=== PATIENT | female | born 1945 | race Caucasian/White ===

== ENCOUNTER 2019-08-19 14:50 | Outpatient (CLI) | payer MEDICARE, SELFPAY ==
--- NOTE | ~2019-08-19 | MM_ITS ---
EXAMINATION: MM screening [facility] BI w shivani HISTORY: Screening mammogram, family history of breast cancer in her sister. TECHNIQUE: Craniocaudal and mediolateral oblique 3-D tomosynthesis images were obtained and synthetic 2-D images were generated. CAD analysis was submitted and interpreted. COMPARISON: No prior mammogram is available for comparison at this institution. BREAST PARENCHYMAL COMPOSITION: The breasts are almost entirely fatty. FINDINGS: Scattered benign-appearing calcifications are present. There is no evidence of suspicious m ass, calcification, or architectural distortion to suggest malignancy in either breast. IMPRESSION: 1. No mammographic evidence of malignancy. 2. Recommend routine screening mammography in one year. BI-RADS Category 2: Benign finding(s). Reviewed, dictated and finalized at location A.
== END 2019-08-19 14:51 | disposition home or self-care (01) ==
PROVIDERS: PCP Family Medicine; Visit Provider Physician Assistant
DX: Z12.31 Encounter for screening mammogram for malignant neoplasm of breast (principal)
CPT/HCPCS: 77063; 77067

== ENCOUNTER 2020-10-12 08:08 | Outpatient (CLI) | payer MEDICARE, SELFPAY ==
--- NOTE | ~2020-10-12 | XR_ITS ---
EXAMINATION: XR hip LT min 2V EXAM DATE: 10/12/2020 09:03 INDICATION: M25.552 - Pain in left hip. Fell one year ago. No reported recent injury. TECHNIQUE: Left hip frontal, 'frog leg' projections for interpretation. There is no prior study for c omparison. FINDINGS: Smooth left hip femoral head contour, no radiographic evidence of avascular necrosis. There is mild to moderate primary osteoarthritis. There are no acute fractures or dislocations identified . There is no subcutaneous gas. Small calcified fibroids. L5 pedicular rods. IMPRESSION: Mild to moderate left hip osteoarthritis. Reviewed, dictated and finalized at location B.
--- NOTE | ~2020-10-12 | MM_ITS ---
EXAMINATION: MM screening [facility] BI w shivani HISTORY: Screening TECHNIQUE: Craniocaudal and mediolateral oblique 3-D tomosynthesis images were obtained and synthetic 2-D images were generated. CAD analysis was submitted and interpreted. COMPARISON: 08/19/2019 BREAST PARENCHYMAL COMPOSITION: There are scattered areas of fibroglandular density. FINDINGS: There is a focal asymmetry in the upper outer quadrant of the right breast near the nipple. The left breast is stable without evidence for malignancy. IMPRESSION: 1. Focal right breast asymmetry anteriorly in the upper outer quadrant. 2. Additional mammographic views and possible breast ultrasound are recommended. BI-RADS Category 0: Incomplete: Needs additional imaging evaluation. Reviewed, dictated and finalized at location A. IMPRESSION: 1. Focal right breast asymmetry anteriorly in the upper outer quadrant. 2. Additional mammographic views and possible breast ultrasound are recommended . BI-RADS Category 0: Incomplete: Needs additional imaging evaluation.
== END 2020-10-12 08:09 | disposition home or self-care (01) ==
PROVIDERS: PCP Family Medicine; Visit Provider Family Medicine
DX: Z12.31 Encounter for screening mammogram for malignant neoplasm of breast (principal); M25.552 Pain in left hip; R92.8 Other abnormal and inconclusive findings on diagnostic imaging of breast; M16.12 Unilateral primary osteoarthritis, left hip
CPT/HCPCS: 73502; 77063; 77067

== ENCOUNTER 2020-10-28 14:10 | Outpatient (CLI) | payer MEDICARE, SELFPAY ==
--- NOTE | ~2020-10-28 | MMUS_ITS ---
EXAMINATION: MM diagnostic mammo unilat RT, US breast RT limited HISTORY: Follow-up subtle right breast asymmetry TECHNIQUE: Additional 3-D tomosynthesis images of the right breast were performed and synthetic 2-D i mages were generated. CAD analysis was submitted and interpreted. High resolution Limited right breas t ultrasound was performed. COMPARISON: 10/12/2020 BREAST PARENCHYMAL COMPOSITION: Breast composed of scattered areas of fibroglandular density. FINDINGS: MAMMOGRAPHIC FINDINGS: There are no suspicious masses, calcifications or architectural distortion to suggest malignancy. ULTRASOUND: Limited right breast ultrasound: In the subareolar location there is an oval circumscribed hypoechoic mass without internal vascularity or posterior features measuring 2.2 x 3 x 1.4 cm, most likely bridgett gn lipoma given the lack of mammographic abnormality. IMPRESSION: 1. Probable benign right breast findings. 2. Recommend 6 month follow-up right breast ultrasound BI-RADS category 3, probably benign findings. Reviewed, dictated and finalized at location A. IMPRESSION: 1. Probable benign right breast findings. 2. Recommend 6 month follow-up right breast ultrasound BI-RADS category 3, probably benign findings.
== END 2020-10-28 14:11 | disposition home or self-care (01) ==
PROVIDERS: PCP Family Medicine; Visit Provider Family Medicine
DX: R92.8 Other abnormal and inconclusive findings on diagnostic imaging of breast (principal)
CPT/HCPCS: 76642; 77065

== ENCOUNTER 2021-04-28 11:38 | Outpatient (CLI) | payer MEDICARE, SELFPAY ==
--- NOTE | ~2021-04-28 | MM_ITS ---
EXAMINATION: MM diagnostic [facility] RT w shivani HISTORY: Six-month follow-up for probably benign right breast asymmetry TECHNIQUE: Craniocaudal, mediolateral, and mediolateral oblique 3-D tomosynthesis images of the right breast were performed and synthetic 2-D images were generated. CAD analysis was submitted and interp reted. COMPARISON: 10/28/2020, 10/12/2020, 08/19/2019 BREAST PARENCHYMAL COMPOSITION: There are scattered areas of fibroglandular density. FINDINGS: An asymmetry in the anterior third of the breast on the craniocaudal view has a stable appe arance when compared to prior mammograms. There has been no suspicious interval change. Scattered darlin ign-appearing calcifications are present. No suspicious mass, calcification, or architectural distort ion are identified. The previous ultrasound demonstrated a sonographic mass deep in the breast with f eatures suggestive of a lipoma, not corresponding to the asymmetry in question. IMPRESSION: 1. No mammographic evidence of malignancy. 2. Routine screening mammography is recommended. BI-RADS Category 2: Benign finding(s). Reviewed, dictated and finalized at location A. 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
== END 2021-04-28 11:39 | disposition home or self-care (01) ==
LOC: ANHIMG 11:39
PROVIDERS: PCP Family Medicine; Visit Provider Physician Assistant
DX: R92.8 Other abnormal and inconclusive findings on diagnostic imaging of breast (principal)
CPT/HCPCS: 77061; 77065; G0279

== ENCOUNTER 2021-08-23 09:09 | Outpatient (CLI) | payer MEDICARE, SELFPAY ==
--- NOTE | ~2021-08-23 | DEXA_ITS ---
Bone Density Report Name: ANSON SOLOMON Age: 75 Sex: Female Ethnicity: White Date of : 1945 Indication: postmenopausal; Referring Provider: Kyrie Mina Study: Bone densitometry was performed. Exam Date: August 23, 2021 Accession number: [id number] Bone Density: Region BMD T-score Z-score Classification AP Spine (L1, L2) 1.332 3.2 5.6 Normal Femoral Neck (Left) 0.843 -0.1 2.1 Normal Total Hip (Left) 1.036 0.8 2.7 Normal Total Hip Bilateral Avg 1.042 0.8 2.7 Normal Femoral Neck (Right) 0.812 -0.3 1.8 Normal Total Hip (Right) 1.047 0.9 2.7 Normal World Health Organization criteria for BMD impression classify patients as: Normal (T-score at or above -1.0), Osteopenia (T-score between -1.0 and -2.5), or Osteoporosis (T-score at or below -2.5). 10-year Fracture Risk: FRAX not reported because: All T-scores for Spine Total, Hip Total, Femoral Neck at or above -1.0 Clinical Information Provided by Patient: Has used the following medications: Vitamin D, Calcium Patient maximum height was 60 Menopause Age: 44 No regular weight bearing exercise Drinks caffeinated beverages Onset of menses at age 10 Number of children 2 Impression: The patient has normal bone mass. Discussion: BONE DENSITY IS ABOVE THE MINIMUM DESIRABLE LEVEL AT ALL SKELETAL SITES TESTED. This patient?s bone mineral density is above the minimum desirable level (T-score -1.0 or better) at all sites measured. The patient should follow a healthful lifestyle (good nutrition with adequate calcium and vitamin D, and appropriate weight-bearing exercise). Follow-Up: Consider repeating this study in 5 years or sooner if there is some new clinical indication. Reported by: [facility] on 08/23/2021 9:37:00 AM. Reviewed, dictated and finalized at location [facility]
== END 2021-08-23 09:10 | disposition home or self-care (01) ==
LOC: ANHIMG 09:14
PROVIDERS: PCP Family Medicine; Visit Provider Physician Assistant
DX: Z78.0 Asymptomatic menopausal state (principal)
CPT/HCPCS: 77080

== ENCOUNTER 2022-07-10 14:44 | Outpatient (CLI) | payer MEDICARE, SELFPAY ==
--- NOTE | ~2022-07-10 | MM_ITS ---
EXAMINATION: MM screening [facility] BI w shivani HISTORY: Screening TECHNIQUE: Craniocaudal and mediolateral oblique 3-D tomosynthesis images were obtained and synthetic 2-D images were generated. CAD analysis was submitted and interpreted. COMPARISON: Comparison to multiple prior studies sequentially, with oldest reviewed study dated 08/18. BREAST PARENCHYMAL COMPOSITION: The breasts are almost entirely fatty. FINDINGS: There is no evidence of suspicious mass, calcification, or architectural distortion to sugg est malignancy in either breast. There has been no suspicious interval change. IMPRESSION: 1. No mammographic evidence of malignancy. 2. Recommend routine screening mammography in one year. BI-RADS Category 1: Negative Reviewed, dictated and finalized at location A. 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
== END 2022-07-10 14:45 | disposition home or self-care (01) ==
PROVIDERS: PCP Family Medicine; Visit Provider Family Medicine
DX: Z12.31 Encounter for screening mammogram for malignant neoplasm of breast (principal)
CPT/HCPCS: 77063; 77067

== ENCOUNTER 2022-08-01 07:37 | Outpatient (CLI) | payer MEDICARE, SELFPAY ==
--- NOTE | ~2022-08-01 | US_ITS ---
US thyroid INDICATION: Thyrotoxicosis TECHNIQUE: Real-time sonographic images of the thyroid gland were obtained. COMPARISON: No prior studies for comparison. FINDINGS: The right thyroid lobe measures 5.2 x 2.7 x 2.7 cm. The left thyroid lobe measures 4.1 x 1 .5 x 1.7 cm. In the right lobe there is a mixed solid and cystic mass measuring 3.3 x 2.2 x 2.4 cm wh ich is hypoechoic, wider than tall, smoothly marginated without internal punctate echogenic foci, TR 4. Also in the right lobe there is a very hypoechoic solid mass which is wider than tall, smoothly ma rginated without internal echogenic foci, TR 4, measuring 1.8 x 1.7 x 1.7 cm and the left lobe there is a solid hypoechoic mass which is wider than tall, smoothly marginated without internal echogenic f oci, TR 4, measuring 1.4 x 1.4 x 1.3 cm. Also in the left lobe there is an oval solid hypoechoic mass which is wider than tall measuring 1.3 x 0.9 x 0.9 cm with a macrocalcification internally and carlos h margins, TR 4. IMPRESSION: 1. Bilateral thyroid masses. Recommend ultrasound-guided fine-needle aspiration biopsy of dominant r ight thyroid masses. Reviewed, dictated and finalized at location B. 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 Bilateral thyroid masses. Recommend ultrasound-guided fine-needle aspiratio n biopsy of dominant right thyroid masses.
== END 2022-08-01 07:38 | disposition home or self-care (01) ==
LOC: ANHIMG 07:38
PROVIDERS: PCP Family Medicine; Visit Provider Internal Medicine
DX: E05.90 Thyrotoxicosis, unspecified without thyrotoxic crisis or storm (principal); E04.2 Nontoxic multinodular goiter
CPT/HCPCS: 76536

== ENCOUNTER 2022-08-09 07:47 | Outpatient (CLI) | payer MEDICARE, SELFPAY ==
--- NOTE | ~2022-08-09 | NM_ITS ---
EXAMINATION: NM thyroid scan w uptake DATE: 08/10/2022 10:33 INDICATION: Thyroid nodule. COMPARISON: Ultrasound 08/01/2022 TECHNIQUE: 0.469 mCi I-123 was administered orally. Scintigraphic images of the thyroid gland were o btained at 24 hours. Thyroid uptake was calculated by the technologist. FINDINGS: The thyroid uptake is 20% (normal 10-30%), with the right lobe measuring 14% uptake and the left 6%. Right thyroid lobe is larger than the left, which correlates with the ultrasound findings. The thyroi d activity is uniform. IMPRESSION: 1. Normal 24-hour iodine uptake. 2. No focal area of decreased or increased activity to suggest hypofunctioning or hyperfunctioning no dule. Reviewed, dictated and finalized at location A. 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 Normal 24-hour iodine uptake. 2. No focal area of decreased or increased activity to suggest hypofunctioning or hyperfunctioning nodule.
== END 2022-08-09 07:48 | disposition home or self-care (01) ==
PROVIDERS: PCP Family Medicine; Visit Provider Internal Medicine
DX: E04.1 Nontoxic single thyroid nodule (principal)
CPT/HCPCS: 78014; A9516

== ENCOUNTER 2022-08-24 12:25 | Outpatient (CLI) | payer MEDICARE, SELFPAY ==
--- NOTE | ~2022-08-24 | US_ITS ---
EXAMINATION: US FNA w image guidance DATE: 08/24/2022 13:43 INDICATION: Thyroid nodule. TECHNIQUE: The procedure and its benefits and risks were discussed with the patient. Risks specifically discusse d included bleeding. The patient verbalized understanding of the risks and agreed to proceed. The nec k was prepped and draped in the usual sterile manner. 1% lidocaine was used for local anesthesia. I aspirated 6 mL fluid from the 3.5 cm right thyroid nodule under ultrasound guidance and discarded the fluid. 6 passes were then made with a 25G needle into the lesion under ultrasound guidance. There w ere no immediate complications. FINDINGS: Grayscale ultrasound images demonstrate needles advanced into a 3.5 cm right thyroid nodule for biops y. The previously seen 1.8 cm nodule in inferior right thyroid lobe could not be visualized due to sh adowing. IMPRESSION: 1. Ultrasound-guided fine needle aspiration of a 3.5 cm right thyroid nodule. Reviewed, dictated and finalized at location A.
== END 2022-08-24 12:26 | disposition home or self-care (01) ==
PROVIDERS: PCP Family Medicine; Visit Provider Internal Medicine
DX: E04.1 Nontoxic single thyroid nodule (principal)
CPT/HCPCS: 10005; 88173; 88305

== ENCOUNTER 2023-02-13 09:07 | Outpatient (CLI) | payer MEDICARE, SELFPAY ==
--- NOTE | ~2023-02-13 | US_ITS ---
EXAMINATION: US thyroid DATE: 02/13/2023 09:54 INDICATION: Right-sided thyroid nodules TECHNIQUE: Multiple ultrasound images of the thyroid were obtained. COMPARISON: 08/01/2022 FINDINGS: The right thyroid lobe measures 4.6 x 2.0 x 2.1 cm. The left thyroid lobe measures 4.0 x 1.6 x 1.6 c m. 1.7 cm wider than tall solid very hypoechoic nodule with punctate internal echogenic foci (TI-RAD S 5, highly suspicious , FNA if >=1.0 cm, annual followup is >0.5 cm). This appears to represent the unchanged residual solid component of the previously biopsied at that time 3.5 cm mixed solid and cys tic mass from which the cystic component was aspirated. There is been some interval decrease in size of a second smaller now 1.3 cm wider than tall very hypoechoic solid mass with smooth or ill-defined margins and without echogenic foci at the inferior right thyroid (TI-RADS 4, moderately suspicious , FNA if >=1.5 cm, annual followup is >=1 cm) which previously measured 1.8 cm. No significant change i n a couple left thyroid nodules. The larger is a 1.6 cm wider than tall predominately solid hypoechoi c nodule with smooth margins and without echogenic foci (TI RADS 4) at the upper pole of the left kid yamileth. The smaller nodule measuring 9 mm is wider than tall solid hypoechoic with smooth well-defined m argins and with internal coarse shadowing calcification (TI RADS 4) at the deep mid left kidney. IMPRESSION: 1. Multinodular goiter with prior benign biopsy of the largest now 1.7 cm TI RADS 5 nodule in the rig ht thyroid. Has been mild increase in size of the next largest 1.6 and meter TI RADS 4 nodule in the left thyroid which now meets criteria for ultrasound-guided biopsy which would be recommended. Reviewed, dictated and finalized at location A. IMPRESSION: 1. Multinodular goiter with prior benign biopsy of the largest now 1.7 cm TI RA DS 5 nodule in the right thyroid. Has been mild increase in size of the next la rgest 1.6 and meter TI RADS 4 nodule in the left thyroid which now meets criter ia for ultrasound-guided biopsy which would be recommended.
== END 2023-02-13 09:08 | disposition home or self-care (01) ==
PROVIDERS: PCP Family Medicine; Visit Provider Internal Medicine
DX: E04.1 Nontoxic single thyroid nodule (principal); E04.2 Nontoxic multinodular goiter
CPT/HCPCS: 76536

== ENCOUNTER 2023-03-18 12:40 | Outpatient (CLI) | payer MEDICARE, SELFPAY ==
--- NOTE | ~2023-03-18 | US_ITS ---
EXAMINATION: US FNA w image guidance DATE: 03/18/2023 13:44 INDICATION: Left thyroid nodule. TECHNIQUE: The procedure and its benefits and risks were discussed with the patient. Risks specifically discusse d included bleeding. The patient verbalized understanding of the risks and agreed to proceed. The nec k was prepped and draped in the usual sterile manner. 1% lidocaine was used for local anesthesia. S ix passes were made with a 25G needle into the lesion under ultrasound guidance. There were no immed iate complications. FINDINGS: Grayscale ultrasound images demonstrate needles advanced into a 1.7 cm nodule in left thyroid lobe fo r biopsy. IMPRESSION: 1. Ultrasound-guided fine needle aspiration of a left thyroid nodule. Reviewed, dictated and finalized at location A.
== END 2023-03-18 12:41 | disposition home or self-care (01) ==
LOC: ANHIMG 12:41
PROVIDERS: PCP Family Medicine; Visit Provider Internal Medicine
DX: E04.2 Nontoxic multinodular goiter (principal)
CPT/HCPCS: 10005; 88173; 88305

== ENCOUNTER 2023-08-09 12:34 | Outpatient (CLI) | payer MEDICARE, SELFPAY ==
--- NOTE | ~2023-08-09 | MM_ITS ---
EXAMINATION: MM screening [facility] w shivani HISTORY: Screening TECHNIQUE: Craniocaudal and mediolateral oblique 3-D tomosynthesis images were obtained and synthetic 2-D images were generated. CAD analysis was submitted and interpreted. COMPARISON: Comparison to multiple prior studies sequentially, with oldest reviewed study dated 08/18. BREAST PARENCHYMAL COMPOSITION: Not Dense: Breast are almost entirely fatty. FINDINGS: There is no evidence of suspicious mass, calcification, or architectural distortion to sugg est malignancy in either breast. There has been no suspicious interval change. IMPRESSION: 1. No mammographic evidence of malignancy. 2. Recommend routine screening mammography in one year. BI-RADS Category 1: Negative Reviewed, dictated and finalized at location A. COACHING
--- NOTE | ~2023-08-09 | DEXA_ITS ---
Bone Density Report Name: ANSON SOLOMON Age: 77 Sex: Female Ethnicity: White Date of : 1945 Indication: postmenopausal; screening for osteoporosis; height loss; Referring Provider: HUANG BUCK Study: Bone densitometry was performed. Exam Date: August 09, 2023 Accession number: [id number] Bone Density: Region BMD T-score Z-score Classification Femoral Neck (Left) 0.820 -0.3 2.0 Normal Total Hip (Left) 0.994 0.4 2.4 Normal Femoral Neck (Right) 0.891 0.4 2.6 Normal Total Hip (Right) 1.015 0.6 2.6 Normal Total Hip Mean 1.005 0.5 2.5 Normal World Health Organization criteria for BMD impression classify patients as: Normal (T-score at or above -1.0), Osteopenia (T-score between -1.0 and -2.5), or Osteoporosis (T-score at or below -2.5). 10-year Fracture Risk: FRAX not reported because: All T-scores for Spine Total, Hip Total, Femoral Neck at or above -1.0 Previous Exams: Region Exam Age BMD T-score BMD Change BMD Change Date g/cm2 vs Baseline vs Previous Total Hip(Left) 08/09/2023 77 0.994 0.4 -0.042 (-4.1%) -0.042 (-4.1%) 08/23/2021 75 1.036 0.8 Total Hip(Right) 08/09/2023 77 1.015 0.6 -0.032 (-3.0%) -0.032 (-3.0%) 08/23/2021 75 1.047 0.9 *Denotes significance at 95% confidence level, LSC for Total Hip = 0.027 g/cm2 Clinical Information Provided by Patient: Patient maximum height was 61 Menopause Age: 44 Drinks caffeinated beverages Onset of menses at age 10 Number of children 2 Impression: The patient has normal bone mass. The BMD for the Total Hip(Left) decreased, changing by -4.1% since the last DXA exam. The BMD for the Total Hip(Right) decreased, changing by -3.0% since the last DXA exam. Discussion: BONE DENSITY IS ABOVE THE MINIMUM DESIRABLE LEVEL AT ALL SKELETAL SITES TESTED. This patient?s bone mineral density is above the minimum desirable level (T-score -1.0 or better) at all sites measured. The patient should follow a healthful lifestyle (good nutrition with adequate calcium and vitamin D, and appropriate weight-bearing exercise). Follow-Up: Consider repeating this study in 3 to 4 years to reassess this patient's status, or sooner if there is some new clinical indication. Reported by: YANICK on 08/09/2023 1:09:00 PM. Reviewed, dictated and finalized at location ANhung DOWNEY
== END 2023-08-09 12:35 | disposition home or self-care (01) ==
LOC: ANHIMG 12:36
PROVIDERS: PCP Family Medicine; Visit Provider Family Medicine
DX: Z12.31 Encounter for screening mammogram for malignant neoplasm of breast (principal); Z78.0 Asymptomatic menopausal state
CPT/HCPCS: 77063; 77067; 77080

== ENCOUNTER 2024-08-10 13:33 | Outpatient (CLI) | payer MEDICARE, SELFPAY | END 2024-08-10 13:34 | disposition home or self-care (01) | LOC: ANHIMG 13:35 | PROVIDERS: PCP Family Medicine; Visit Provider Family Medicine | DX: Z12.31 Encounter for screening mammogram for malignant neoplasm of breast (principal) | CPT/HCPCS: 77063; 77067 ==

== ENCOUNTER 2024-11-04 10:47 | Outpatient (CLI) | payer MEDICARE, SELFPAY ==
--- OUTSIDE RECORDS SUMMARY | 2024-11-04 10:54 | XMS_ITS | CONTINUITY OF CARE DOCUMENT ---
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 Name Role Phone Cony Xie MD Unavailable [phone] HUANG BUCK MD Unavailable HUANG BUCK MD Unavailable PROBLEMS Condition Status Date Provider Notes Chest pain active [facility] active Reza Ramirez MD ENCOUNTERS Date Type Provider Location Encounter Diagnosis - In-person encounter Office Visit Reza Ramirez MD [facility] - In-person encounter Office Visit Reza Ramirez MD [facility] RBBB VITAL SIGNS Date Observation Value Provider Body Mass Index (Ratio) 37.41 kg/m2 Perla Ramirez MD blood pressure, diastolic 70 mm[Hg] Da wendi Aubrey blood pressure, systolic 138 mm[Hg] Dac ia Elvira oxygen saturation, oximetry 95 % Jess Elvira respiratory rate E&M 16 /min Jess V oss pulse rate 71 /min Jess Elvira weight E&M 198 [lb_av] Jess Elivra height E&M 61 [in_i] Jess Elvira Body Mass Index (Ratio) 37.11 kg/m2 Perla Ramirez MD blood pressure, resting Yes Dinah Lopez blood pressure, diastolic 73 mm[Hg] Pete Lopez blood pressure, systolic 164 mm[Hg] Arminda Lopez oxygen saturation, oximetry 96 % Kendal Lopez respiratory rate E&M 18 /min Joe Lopez pulse rate 93 /min Kendal Amaya ranjitjúnior weight E&M 196.4 [lb_av] Kendal radford height E&M 61 [in_i] Kendal barros ALLERGIES No Known Drug Allergies HISTORY OF MEDICATION USE Medication Status Instructions Dates Provider Indications Com ments INSULIN active 15 units twice daily Kendal Lopez EYE-VELMA PLUS LUTEIN ORAL CAPSULE active once daily Kendal Lopez ASPIRIN ADULT LOW DOSE 81 MG ORAL TABLET DELAYED RELEASE active One Tab By Mouth Daily Kendal Lopez CALCIUM + D3 600-200 MG-UNIT ORAL TABLET active ONE TAB BY MOUTH DAILY Kendal Lopez FENOFIBRATE MICRONIZED 134 MG ORAL CAPSULE active once daily Kendal Lopez ROSUVASTATIN CALCIUM 20 MG ORAL TABLET active once daily Kendal Lopez METFORMIN HCL 500 MG ORAL TABLET active 4 tabs once daily Kendal Lopez LISINOPRIL 10 MG ORAL TABLET active ONE TAB. DAILY Kendal Lopez SOCIAL HISTORY Date Observation Value Provider social history reviewed E&M revi ewed - no changes required Reza Ramirez MD social history E&M S moking History: Mohamud payne is a former smoker. Reza Ramirez MD smoking, year quit 1979 Jess Kit s cigarette use yes Jess Elvira smoking status Former smoker Jess Elvira social history reviewed E&M revi ewed - no changes required Reza Ramirez MD number of grandchildren Reza Ramirez MD U lamberto Ramirez MD smoking, year quit 1979 Kendal Lopez cigarette use yes Kendal radford smoking status Former smoker Kendal Parsons FAMILY HISTORY Family Member Condition Mother Family History of Di abetes: INSURANCE PROVIDERS Payer name Policy type / Coverage type [place] red democrat ID REGGIE [employer]ARP Other [id number] ADVANCE DIRECTIVES Name Date DISCUSSED - NO DECISION MADE TREATMENT PLAN Date Name Performer Cardiology:Old diagnosis. Patien t doing well. Reza Ramirez MD Cardiology:States sh e has occasional sharp chest pains. S he has risk factors of family history and diabetes. W ith her back pains, she is not sure that she could complete an exercise stress test. W ill check nuclear stress test. Reza Ramirez MD Date Name STR - Nuclear HISTORY OF PROCEDURES Procedure Date Procedure Name Provider Procedure Notes S tatus SNOMED-CT: 503057328 [id number] Current Medications Documented Reza Ramirez MD completed Stress EKG Galilea Parsk MD complet ed Regadenoson, 4 units Cony Xie MD completed Cardiolite, 2 units Cony Xie MD completed SPECT Images Galilea Parks MD compl eted SNOMED-CT: 188772253 269358 Current Medications Documented Reza Ramirez MD completed SNOMED-CT: 69361308 Physical Exam, Performed: Pulse Exam of Foot Reza Ramirez MD completed EKG Reza Ramirez MD completed ZIO Event Hookup Reza Ramirez MD com pleted
[2024-11-04 11:48] LABS: Add Urine Microscopic? YES; Appearance Urine Clear (Clear); Bacteria Urine None Seen /hpf; Bilirubin Urine Negative (Negative); Blood Urine Negative (Negative); Color Urine Yellow (Yellow); Glucose Urine UA Negative (Negative); Ketones Urine Negative (Negative); Leukocyte Esterase Ur 1+ LEU/UL (Negative); Nitrate Urine Negative (Negative); Non Pathogenic Casts 0-2; Protein Urine 2+ mg/dL (Negative); RBC Urine 0-2 /hpf (0-2); Specific Grav Ur 1.018 (1.001-1.035); Squamous Epithelial Cell Urine None Seen /hpf (Few); Urobilinogen Urine 0.2 mg/dL (<2.0)
[2024-11-04 11:51] LABS: Alanine Aminotransferase 19 U/L (6-35); Albumin Level 3.4 g/dL (3.5-5.1); Alkaline Phosphatase 46 U/L (38-126); Anion Gap 6 mmol/L (4-12); Aspartate Amino Transferase 42 U/L (14-36); Bilirubin,Total 0.4 mg/dL (0.2-1.3); Blood Urea Nitrogen 26 mg/dL (7-17); Calcium 9.3 mg/dL (8.4-10.2); Carbon Dioxide 26 mmol/L (22-30); Chloride 109 mmol/L (98-107); Estimated Glomerular Filt Rate > 60; Glucose 147 mg/dL (65-110); Hemoglobin A1C 6.5 % (<5.7); Potassium 4.2 mmol/L (3.4-5.0); Sodium 141 mmol/L (137-145)
== END 2024-11-04 10:48 | disposition home or self-care (01) ==
PROVIDERS: PCP Family Medicine; Visit Provider Family Medicine
DX: N39.0 Urinary tract infection, site not specified (principal); E11.9 Type 2 diabetes mellitus without complications; I10 Essential (primary) hypertension; Z79.4 Long term (current) use of insulin
CPT/HCPCS: 36415; 80053; 81001; 83036; 87086

== ENCOUNTER 2025-02-19 16:27 | Inpatient (IN) | payer MEDICARE, SELFPAY ==
--- OUTSIDE RECORDS SUMMARY | 2016-01-11 10:00 | XMS_ITS | Continuity of Care Document ---
Author Organization [facility] Address [address] [facility] [address] [place] [id number] Phone Care Team Providers Care Emergency Management System Director Name Role Phone Jarrod Newsome MD Unavailable Unavailable Allergies, Adverse Reactions, Alerts Substance Reaction Status Criticality No Known Allergies Active No Inform ation Medications Medication Instructions Dosage Effective Dates (start - stop) Status Comments Naprosyn 500 mg tablet take 1 tablet by oral route 2 times every day with food 500 MG - Active Bactrim DS 800 mg-160 mg tablet take 1 tablet by oral route every 12 hours 1.00 tablet - Active HUMULIN R (unknown strength) Not Available - Active CRESTOR (unknown strength) Not Available - Active LISINOPRIL (unknown strength) Not Available - Active ASPIRIN (unknown strength) Not Available - Active CALCIUM (unknown strength) Not Available - Active IRON (unknown strength) Not Available - Active Procedures Procedure Date OFFICE/OUTPATIENT VISIT EST OFFICE/OUTPATIENT VISIT EST OFFICE/OUTPATIENT VISIT EST RADEX SPI LUMBOSAC 2/3 VIEWS POSTOP FOLLOW-UP VISIT POSTOP FOLLOW-UP VISIT RADEX SPI LUMBOSAC 2/3 VIEWS POSTOP FOLLOW-UP VISIT POSTOP FOLLOW-UP VISIT OFFICE/OUTPATIENT VISIT EST RADEX SPI LUMBOSAC 2/3 VIEWS DISABILITY EXAMINATION Advance Directives Directive Yes / No Effective Date File Name No Information Encounters Encounter Description Practice Location Reason(s) For Visit Diagnoses Date Provider Providers Copied on Encounter OFFICE/OUTPA TIENT VISIT EST [facility], [address], [address], [place] tel:[phone] [facility] The therapy did it this time (chief complaint) Body mass index (BMI) 34.0-34.9, adultLumbar stenosisFacet arthropathy, lumbar Aug- 3-201 6 Newsome Jarrod. [address] [place], [place], [id number] . tel:[phone] OFFICE/OUTPA TIENT VISIT EST [facility], [address] [facility] [address], [address], [place] tel:[phone] [facility] I am having trouble lifting heavy tubs (chief complaint) Body mass index (BMI) 34.0-34.9, adultLumbar stenosisSpondylol isthesis at L4-L5 level 6- 6 Newsome Jarrod. [address] [place], [place], [id number] . tel:[phone] OFFICE/OUTPA TIENT VISIT EST [facility], [address], [address], [place] tel:[phone] [facility] My back will still get stiff and sore (chief complaint) Body mass index (BMI) 34.0-34.9, adultLumbar stenosisSpondylol isthesis at L4-L5 level 3- 6 Newsome Jarrod. [address] [place], [place], [id number] . tel:[phone] [facility], [address], [address], [place] tel:[phone] [facility] My back is pretty stiff and sore (chief complaint) Lumbar stenosisRight lumbar radiculopathyBody mass index (BMI) 34.0-34.9, adultSpondylolist hesis at L4-L5 level 0 9-201 6 Newsome Jarrod. [address] [place], [place], [id number] . tel:[phone] [facility], [address], [address], [place] tel:[phone] [facility] My back is still pretty sore (chief complaint) Body mass index (BMI) 34.0-34.9, adultRight lumbar radiculopathyLumb ar stenosisSpondylol isthesis at L4-L5 level Sep-1 8-201 6 Newsome Jarrod. [address] [facility] [place], [id number] . tel:[phone] Referring Provider: Zac Marroquin, [address], [place], [address]. tel:[phone] [facility], [address], [address], [place] tel:[phone] [facility] Body mass index (BMI) 34.0-34.9, adultLumbar stenosisRight lumbar radiculopathySpon dylolisthesis at L4-L5 level Aug-2 - 6 Newsome Jarrod. [address] [facility] [place], [id number] . tel:[phone] [facility], [address], [address], [place] tel:[phone] [facility] post-op (chief complaint) I am feeling very good (chief complaint) Body mass index (BMI) 34.0-34.9, adultRight lumbar radiculopathySpon dylolisthesis at L4-L5 levelLumbar stenosis Aug-0 7- 6 Newsome Jarrod. [address] [facility] [place], [id number] . tel:[phone] Referring Provider: Zac Marroquin, [address], [place], [address]. tel:[phone] [facility], [address], [address], [place] tel:[phone] [facility] No Information 2- 6 Newsome Jarrod. [address] [place], [place], [id number] . tel: [phone] [facility], [address], [address], tel:[phone] [facility] Lumbar stenosisRight lumbar radiculopathySpon dylolisthesis at L4-L5 level Feb-0 8-201 6 Mercedez Garay. [address] [place], [place], [id number] . tel: [phone] OFFICE/OUTPA TIENT VISIT EST [facility], [address], [address], tel:[phone] [facility] My back and right leg are bothering me alot (chief complaint) My left leg is starting to bother me too (chief complaint) Lumbar stenosisRight lumbar radiculopathySpon dylolisthesis at L4-L5 levelBody mass index (BMI) 34.0-34.9, adult Feb-0 1-201 6 Mercedez Garay. [address] [place], [place], [id number] . tel: [phone] DISABILITY EXAMINATION [facility], [address], [address], [place] tel:[phone] [facility] My back and right leg hurt alot (chief complaint) BackacheObesityLu mbar RadiculopathyLumb ar StenosisSpondylol isthesis Sep-0 9-201 5 Mercedez Garay. [address] [place], [place], [id number] . tel: [phone] Family History Family Member Type Diagnosis Age At Onset Sister Problem (finding) malignant neop lasm of breast in first degree relative Sister Problem (finding) malignant neoplasm of l bouchra Mother Problem (finding) malignant neoplasm of l bouchra Father Problem (finding) chronic obstructive brenda g disease Brother Problem (finding) Cancer, unknown Father Problem (finding) Cancer, unknown Mother Problem (finding) Maternal history of sadie betes mellitus Sister Problem (finding) Cancer, brain Payers Payer name Insurance type Covered alliance party ID Authoriza tion(s) No Information Social History Type Description Quantity Date Captured Comments Alcohol Use Details No Caffeine Use Details Unknown Tobacco Use Status No Information Smoking Status No Information Sex Female Vital Signs Date / Time: Height Weight BMI Pulse Rate Blood Pressure Temperature Respiratory Rate Body Surface Area Head Circumference Head Circ. Percentile Wt./Seth. Percentile BMI percentile Pulse Ox Inhaled Ox 3:06 PM 61.00 in 81.647 kg (180.00 lbs) 34.0 1 kg/m eter (2) Chief Complaint And Reason For Visit From encounter dated '01/11/2016 15:00'. The therapy did it this time (chief complaint) Reason For Referral Reason For Referral No Information Plan Of Treatment Date Type Action Status Referral Ordered: RADEX CH 2 VIEWS FRNT&LAT ordered Referral Ordered: RADEX SPI LUMBOSAC 2/3 VIEWS ordered History Of Present Illness Encounter Date Complaint History Of Prese nt Illness The therapy did it this time I am having trouble lifting heav y tubs My back will still get stiff and sore My back is pretty stiff and sore My back is still pretty sore post-op I am feeling very good My back and right leg are bother ing me alot My left leg is starting to bothe r me too My back and right leg hurt alot Functional Status Date Functional Assessmen t No Information Instructions Date Instruction Additional Infor julian Dietary needs education Related to Body mass index (BMI) 34.0-34.9, adult Dietary needs education Related to Body mass index (BMI) 34.0-34.9, adult Continue home exercise program. Related to Lumbar stenosis Dietary needs education Related to Body mass index (BMI) 34.0-34.9, adult Continue home exercise program. Related to Lumbar stenosis Take medication as directed. Rel ated to Lumbar stenosis At this time, I feel the patient would benefit from a course of non-operative management. I will start the patient on Naprosyn 500mg p.o. b.i.d. for the next three weeks. I will also start the patient in physical therapy to work on range of motion and strengthening of the lumbar spine and modalities as seen fit by the physical therapist. I discussed with the patient the importance of continuing home therapy once formal therapy has ended. I would like to see the patient again in six weeks. All the patient's questions were answered. Related to Right lumbar radiculopathy Dietary needs education Related to Body mass index (BMI) 34.0-34.9, adult Continue home exercise program. Related to Lumbar stenosis Take medication as directed. Rel ated to Lumbar stenosis Dietary needs education Related to Body mass index (BMI) 34.0-34.9, adult Dietary needs education Related to Body mass index (BMI) 34.0-34.9, adult Dietary needs education Related to Body mass index (BMI) 34.0-34.9, adult At this time, we hav e exhausted all non-operative management for this patient in the form of physical therapy, anti-inflammatories, epidural steroid injections, and life style modifications, all of which have failed to alleviate the patient's back and leg symptoms. I feel the patient would be an excellent candidate for a transforaminal lumbar interbody fusion L3-4, L4-5 The risks and benefits associated with the procedure were discussed at length with the patient which include bleeding, infection, nerve injury, non-union, continued pain, and need for further surgery. I also discussed the risk of injury to a nerve resulting in weakness in one or both legs, risk of re-herniation of more disc material, risk of dural tear resulting in a CSF leak requiring further surgery, and the risk of developing blood clots in their leg that could result in pulmonary embolus or stroke as well as possible blindness. The patient understood these risks and benefits and wished to proceed with the above-stated procedure. We will have the patient see their primary care provider prior to surgery for pre-operative evaluation and risk stratification for surgery. In addition we will obtain routine blood work prior to surgery. All the patient's questions were answered. Related to Lumbar stenosis Dietary needs education Related to Body mass index (BMI) 34.0-34.9, adult Rest, ice and elevate. Related t o Right lumbar radiculopathy Discussed treatment options Rela jose miguel to Right lumbar radiculopathy Dietary needs education Related to Obesity, unspecified Assessments Type Assessment Date assessment Body mass index (BMI) 34.0-34.9, adult assessment Lumbar stenosis assessment Facet arthropathy, lumbar Patient Care Teams Name Effective Dates (start - stop) Status Members No Information
--- NOTE | ~2025-02-19 | CT_ITS ---
EXAMINATION: CT brain wo con DATE: 02/19/2025 17:54 INDICATION: Status post fall. TECHNIQUE: Computed tomography (CT) of the head was performed without intravenous contrast. The dose-length product was 756.67 mGy-cm. Automated exposure control and iterative reconstruction technique were employed. COMPARISON: None FINDINGS: There is a peripherally calcified mass involving the right cerebellum. There is mass effect on the cerebellum. Difficult to assess whether this is intra or extra-axial. The mass measures 3 x 2.4 cm. No ventriculomegaly or midline shift. No depressed skull fractures. Paranasal sinuses and mastoids are pneumatized. No acute infarction. No ventriculomegaly or midline shift. No definite acute hemorrhage is seen. IMPRESSION: 1. 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 The intra versus extra-axial location is indeterminate. Differential diagnosis includes meningioma, oligodendroglioma, calcified metastases. Recommend MRI brain with and without contrast. Reviewed, dictated and finalized at location O. IMPRESSION: 1. Peripherally calcified mass in the right posterior fossa measuring 3 x 2.4 c m with mass effect on the cerebellum. The intra versus extra-axial location is indeterminate. Differential diagnosis includes meningioma, oligodendroglioma, c alcified metastases. Recommend MRI brain with and without contrast.
--- NOTE | ~2025-02-19 | MR_ITS ---
EXAMINATION: MR brain/brain stem wo/w con DATE: 02/21/2025 11:16 INDICATION: Brain mass TECHNIQUE: Magnetic resonance imaging (MRI) of the brain and brainstem was performed without and with 15 mL Multihance intravenous contrast. Sequences included sagittal and axial T1-weighted SE, axial diffusion-weighted FS SE, axial 3D SWAN, axial T2-weighted FLAIR, and axial T2-weighted FSE. Postcontrast axial, sagittal and coronal T1-weighted SE was obtained. Apparent diffusion coefficient (ADC) maps were created. COMPARISON: Head CT dated 02/1225 FINDINGS: Avidly enhancing 3.2 x 2.5 cm extra-axial mass in the right posterior fossa with some peripheral calcification prior CT most consistent with a hemangioma. There are no areas of restricted diffusion to suggest acute infarction. No intracranial hemorrhage or abnormal intracranial mass lesion. There are s cattered areas of nonspecific increased T2-weighted signal intensity in the cerebral white matter, predominantly involving the deep and periventricular white matter. There are no intraparenchymal signal abnormalities seen on the other pulse sequences. The ventricles are symmetric and normal in size. There are no abnormal extra-axial fluid collections. Flow voids are seen in the cerebral arteries on the T2-weighted sequences consistent with their expected patency. Mild mucosal thickening at the bilateral ethmoid sinuses. Changes of bilateral intraocular lens replacement. IMPRESSION: 1. 3.2 x 2.5 cm avidly enhancing extra-axial mass in the right posterior fossa calcific location on prior CT most consistent with a meningioma. Reviewed, dictated and finalized at location A.
[2025-02-19 16:23] VITALS: BP 154/51; PULSE 101; RESP 30; TEMP 37.1; O2SAT 99
--- NOTE | 2025-02-19 16:34 | ECG_ITS ---
Test Date: 2025-02-19 17:03:26 Measurements Intervals [place] Rate: 94 P: 79 AK: 240 QRS: -79 QRSD: 139 T: 34 QT: 385 QTc: 483 Interpretive Statements SINUS RHYTHM WITH FIRST DEGREE AV BLOCK MARKED LEFT AXIS DEVIATION [QRS AXIS < -30] RIGHT BUNDLE BRANCH BLOCK [120+ ms QRS DURATION, UPRIGHT V1, 40+ ms S IN I/aVL/V4/V5/V6] POSSIBLE ANTERIOR MYOCARDIAL INFARCTION , OF INDETERMINATE AGE [30 ms Q WAVE IN V3/V4, OR R < 0.2 mV IN V4] ABNORMAL ECG No previous ECG available for comparison Electronically Signed On 02-20-2025 12:13:38 CDT by Brenden Smith M.D.
[2025-02-19 16:37] VITALS: PULSE 101
[2025-02-19 16:46] LABS: Hematocrit 31.6 % (37.0-47.0); Hemoglobin 9.7 g/dL (12.0-15.0); Immature Granulocyte Percent A 0.4 % (0-0.5); Lymphocytes Absolute Auto 1.78 K/mm3 (0.9-3.2); Mean Corpuscular HGB Conc 30.7 g/dl (32-36); Mean Corpuscular Hemoglobin 28.9 pg (26-34); Mean Corpuscular Volume 94.0 fl (80-100); Nucleated Red Blood Cells Absolute Auto 0.000 K/mm3 (0.0-0.012); Nucleated Red Blood Cells Perc 0.0 % (0.0-0.2); Platelet Count Result 380 k/mm3 (150-375); Red Blood Count 3.36 M/mm3 (4.2-5.4); White Blood Count 13.5 K/mm3 (4.5-10.0)
[2025-02-19 17:01] LABS: Alanine Aminotransferase 27 U/L (6-35); Albumin Level 3.3 g/dL (3.5-5.1); Alkaline Phosphatase 81 U/L (38-126); Anion Gap 18 mmol/L (4-12); Aspartate Amino Transferase 51 U/L (14-36); Bilirubin,Total 1.3 mg/dL (0.2-1.3); Blood Urea Nitrogen 45 mg/dL (7-17); Calcium 9.0 mg/dL (8.4-10.2); Carbon Dioxide 15 mmol/L (22-30); Chloride 111 mmol/L (98-107); Creatine Kinase 413 U/L (30-135); Estimated Glomerular Filt Rate 47; Glucose 191 mg/dL (65-110); Potassium 4.5 mmol/L (3.4-5.0); Sodium 144 mmol/L (137-145); Total Protein 6.1 g/dL (6.3-8.2)
[2025-02-19 17:09] LABS: Troponin I 0.029 ng/mL (0.000-0.034)
[2025-02-19 17:10] LABS: INR 1.2; Prothrombin Time 15.3 Seconds (11.1-14.7)
[2025-02-19 17:11] LABS: Partial Thromboplastin Time 36.0 Seconds (22.3-36.8)
[2025-02-19 17:15] LABS: Add Urine Microscopic? YES; Appearance Urine Turbid (Clear); Glucose Urine UA Negative (Negative); Leukocyte Esterase Ur 3+ LEU/UL (Negative); Need Manual Microscopic Reviewed; Nitrate Urine Negative (Negative); Non Pathogenic Casts >20; Specific Grav Ur 1.019 (1.001-1.035)
[2025-02-19 17:31] LABS: CRP 13.4 mg/dL (<1.0)
[2025-02-19 17:41] VITALS: BP 148/41; PULSE 94; RESP 18; O2SAT 99
[2025-02-19] MEDS: cefTRIAXone 1 GM in SODIUM CHLORIDE 0.9% IV 50 ML 100 ML IVPB (17:41)
--- NOTE | 2025-02-19 17:42 | PC.NURSE ---
pt to CT scan via stretcher at this time
--- NOTE | 2025-02-19 18:11 | ED_ITS ---
HPI - General Adult General Chief complaint: Weakness Stated complaint: on floor since 02/17/25 Time Seen by Provider: 02/19/25 16:49 History of Present Illness HPI narrative: Patient is an 79-year-old female who presents ER after being found on the ground at her home. She fell out of her bed 2 days ago. Denies LOC. She smells of urine. Denies fevers or chills. Has no complaints of pain. She denies taking any blood thinning medications. Related Data Home Medications ?Medication ?Instructions ?Recorded ?Confirmed ?Last Taken ?Type aspirin 81 mg tablet,delayed 81 mg PO DAILY 05/04/19 0 11/04/24 05/09/19 History release (Adult Low Dose Aspirin) calcium 315 mg (as 2 tablet PO DAILY 07/21/19 0 11/04/24 Unknown History citrate)-vitamin D3 5 mcg (200 unit) tablet Allergies Allergy/AdvReac Type Severity Reaction Status Date / Time No Known Allergies Allergy Verified 11/04/24 10:07 Review of Systems 2 Review of Systems: All systems reviewed & are unremarkable except as noted in HPI and below Constitutional: Constitutional: Reports no additional constitutional complaints Cardiovascular: Cardiovascular: Reports no additional cardiovascular complaints Respiratory: Respiratory: Reports no additional respiratory complaints Gastrointestinal: Gastrointestinal: Reports no additional gastrointestinal complaints Genitourinary: Genitourinary: Reports no additional female genitourinary complaints [facility] Past Medical History Medical History Osteoporosis Hemorrhoids Diverticulosis Arthritis Macular degeneration Dyslipidemia Hypertension Diabetes mellitus Surgical History Surgical History History of bladder suspension procedure History of cholecystectomy History of bilateral tubal ligation Family History Family History Other Diabetes mellitus Family history of allergic disorder Family history of malignant neoplasm Social History Social History Smoking packs per day: 3 Smoking cigarettes per day: 60.0 Years smoked: 20 Smoking pack-years: 60.00 Smoking status: Never smoker Tobacco type: cigarettes Second hand tobacco smoke exposure: Yes Smoking end date: 06/10/89 Alcohol intake: never Substance use: never Substance use type: does not use Do You Feel Safe in your Home?: Yes Lack of Transportation: No Lack of Food: Never True Current Housing: I Have Housing Concerned About Future Housing: No Difficulty Paying Gas/Electric Bills: No Difficulty Paying for Meds: No Currently Unemployed: No Education: High School Diploma/GED Difficulty w/ Childcare or Family Care: No Living arrangements: alone Occupation/Education: retired Gender identity (if verbalized by the patient): Female Sexual Orientation (if Verbalized by the Patient): Straight or Heterosexual Exam 2 Narrative: GENERAL: Well-appearing, well-nourished, and in no acute distress. HEAD: Normocephalic, atraumatic. ENT: Mucous membranes moist. NECK: Supple. CHEST: Clear to auscultation. No respiratory distress. HEART: Regular rate and rhythm. Normal peripheral pulses. ABDOMEN: Soft, nontender, nondistended. EXTREMITIES: Normal range of motion. No edema. SKIN: Warm, dry, no rash. NEURO: Alert and oriented x3. PSYCH: Normal mood and affect. Course Course Emergency Course: I have discussed the results with the patient. Admit to the hospitalist service for UTI/PAT/rhabdo. Also discussed abnormal CT scan with the patient. She has never had a CT of her brain before. No headaches at this time. Will have a MRI performed for further evaluation. Vital Signs Vital signs: Vital Signs Temperature 98.8 F 02/19/25 16:23 Pulse Rate 101 H 02/19/25 16:23 Respiratory Rate 30 H 02/19/25 16:23 Blood Pressure 154/51 H 02/19/25 16:23 Pulse Oximetry 99 02/19/25 16:23 Oxygen Delivery Room Air 02/19/25 16:23 Temperature 98.8 F 02/19/25 16:23 Pulse Rate 94 02/19/25 17:41 Respiratory Rate 18 02/19/25 17:41 Blood Pressure 148/41 H 02/19/25 17:41 Pulse Oximetry 99 02/19/25 17:41 Oxygen Delivery Room Air 02/19/25 16:23 Medical Decision Making Vital Signs Vital Signs: Vital Signs Temperature 98.8 F 02/19/25 16:23 Pulse Rate 101 H 02/19/25 16:23 Respiratory Rate 30 H 02/19/25 16:23 Blood Pressure 154/51 H 02/19/25 16:23 Pulse Oximetry 99 02/19/25 16:23 Oxygen Delivery Room Air 02/19/25 16:23 Temperature 98.8 F 02/19/25 16:23 Pulse Rate 94 02/19/25 17:41 Respiratory Rate 18 02/19/25 17:41 Blood Pressure 148/41 H 02/19/25 17:41 Pulse Oximetry 99 02/19/25 17:41 Oxygen Delivery Room Air 02/19/25 16:23 Lab Data 02/19/25 16:40 02/19/25 16:40 Labs: Lab Results 02/19/25 02/19/25 02/19/25 Range/Units 16:32 16:40 16:57 WBC 13.5 H (4.5-10.0) K/mm3 RBC 3.36 L (4.2-5.4) M/mm3 Hgb 9.7 L (12.0-15.0) g/dL Hct 31.6 L (37.0-47.0) % MCV 94.0 (80-100) fl MCH 28.9 (26-34) pg MCHC 30.7 L (32-36) g/dl RDW 15.2 H (11.5-14.5) % Plt Count 380 H (150-375) k/mm3 MPV 9.6 (7.4-10.4) fl Immature Gran % (Auto) 0.4 (0-0.5) % Neut % (Auto) 77.5 H (45.5-73.1) % Lymph % (Auto) 13.1 L (18.3-44.2) % [place] % (Auto) 8.9 H (2.6-8.5) % Eos % (Auto) 0.0 (0-4.4) % Baso % (Auto) 0.1 L (0.2-1.2) % Lymph # (Auto) 1.78 (0.9-3.2) K/mm3 [place] # (Auto) 1.2 H (0.1-0.6) K/mm3 Eos # (Auto) 0.0 (0-0.3) K/mm3 Baso # (Auto) 0.0 (0.0-0.1) K/mm3 Abs Immat Gran (auto) 0.06 H (0.00-0.031) K/mm3 Absolute Neuts (auto) 10.5 H (1.3-6.7) K/mm3 Absolute Nucleated RBC 0.000 (0.0-0.012) K/mm3 Nucleated RBC % 0.0 (0.0-0.2) % PT 15.3 H (11.1-14.7) Seconds INR 1.2 APTT 36.0 (22.3-36.8) Seconds Sodium 144 (137-145) mmol/L Potassium 4.5 (3.4-5.0) mmol/L Chloride 111 H (98-107) mmol/L Carbon Dioxide 15 L (22-30) mmol/L Anion Gap 18 H (4-12) mmol/L BUN 45 H D (7-17) mg/dL Creatinine 1.12 H (0.7-1.0) mg/dL Estim Creat Clear Calc Not Reportable Estimated GFR 47 L (59 - ) Glucose 191 H (65-110) mg/dL POC Capillary Glucose 176 H (65-105) mg/dl Lactic Acid 1.3 (0.7-2.0) mmol/L Calcium 9.0 (8.4-10.2) mg/dL Total Bilirubin 1.3 (0.2-1.3) mg/dL AST 51 H (14-36) U/L ALT 27 (6-35) U/L Alkaline Phosphatase 81 (38-126) U/L Total Creatine Kinase 413 H (30-135) U/L Troponin I 0.029 (0.000-0.034) ng/mL C-Reactive Protein 13.4 H (<1.0) mg/dL Total Protein 6.1 L (6.3-8.2) g/dL Albumin 3.3 L (3.5-5.1) g/dL Urine Color Dark yellow (Yellow) Urine Appearance Turbid H (Clear) Urine pH 5.0 (5.0-9.0) Ur Specific Squire 1.019 (1.001-1.035) Urine Protein 2+ H (Negative) mg/dL Urine Glucose (UA) Negative (Negative) mg/dL Urine Ketones 1+ H (Negative) mg/dL Ur Blood (Man) Trace (Negative) Urine Nitrate Negative (Negative) Urine Bilirubin 3+ H (Negative) Urine Urobilinogen 1.0 (<2.0) mg/dL Add Ur Microanalysis Reviewed Leukocyte Esterase Rfl 3+ H (Negative) SHAZIA/UL Urine RBC 0-2 (0-2) /hpf Urine WBC >100 H (0-3) /hpf Ur Squamous Epith Cells None seen (Few) /hpf Urine Bacteria 4+ H /hpf Urine Casts >20 Hyaline Casts Present (None) /lpf Imaging Data Radiologist's impression: ITS Impressions Head CT 02/19/25 17:57 IMPRESSION: 1. 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 The intra versus extra-axial location is indeterminate. Differential diagnosis includes meningioma, oligodendroglioma, calcified metastases. Recommend MRI brain with and without contrast. ECG Data EKG #1: ECG completion date: 02/19/25 ECG completion time: 17:03 EKG Interpretation: normal rate (94), sinus rhythm, non-specific ST changes and RBBB Critical Care Time Critical Care Time Critical Care Time: Yes Total Critical Care Time: 35 Discharge Plan Discharge Clinical Impression: PAT (acute kidney injury), Acute UTI, Rhabdomyolysis, Brain mass Patient Disposition: Still a Patient Condition: Stable Patient Language: Ethiopian Prescriptions: No Action calcium citrate-vitamin D3 315-200 mg-unit tablet 2 tablet PO DAILY aspirin [Adult Low Dose Aspirin] 81 mg Tablet,Delayed Release (Dr/Ec) 81 mg PO DAILY (DME) insulin syringe-needle U-100 [BD Insulin Syringe Ultra-Fine] 0.3 mL 31 gauge x 5/16 syringe See Rx Instructions .ROUTE .MEDSUPPLY Qty: 180 3RF Rx Instructions: inject bid (DME) pen needle, diabetic 32 gauge x 5/32 needle See Rx Instructions .Route Qty: 100 10RF Rx Instructions: As directed to inject insulin BID fenofibric acid (choline) 135 mg capsule,delayed release(DR/EC) 135 mg PO DAILY Qty: 90 1RF rosuvastatin 20 mg tablet 20 mg PO DAILY Qty: 90 3RF OneTouch Ultra Test Strip See Rx Instructions .ROUTE .COMPLEX Qty: 100 5RF Dose Instruction: USE STRIP TO CHECK GLUCOSE TWICE DAILY Rx Instructions: USE STRIP TO CHECK GLUCOSE TWICE DAILY insulin lispro protamin-lispro [Humalog Mix 75-25 KwikPen] 100 unit/mL (75-25) insulin pen 15 unit subcut BID Qty: 15 2RF metformin 500 mg tablet extended release 24 hr 2,000 mg PO DAILY Qty: 360 1RF lisinopril 20 mg tablet See Rx Instructions .ROUTE .COMPLEX Qty: 90 2RF Dose Instruction: Take 1 tablet by mouth once daily Rx Instructions: Take 1 tablet by mouth once daily Follow-up/Referrals: Zac Stuart MD [Primary Care Provider, Family Practice]
[2025-02-19 18:49] VITALS: BP 147/92; PULSE 99; RESP 17; O2SAT 100
[2025-02-19 19:19] VITALS: BMI 35.4
--- NOTE | 2025-02-19 19:53 | WNDPHOTO ---
PHOTO ONLY - See Nursing Notes and/ or assessments for documentation.
[2025-02-19] MEDS: SODIUM CHLORIDE 0.9% IV 1,000 ML 125 ML IV CONT (21:56)
[2025-02-19 22:00] VITALS: BP 125/54; PULSE 95; RESP 16; TEMP 36.9; O2SAT 99
--- NOTE | 2025-02-20 | ECHO_ITS ---
Patient Info Name: Loretta Quintana Age: 79 years : 1945 Gender: Female Ht: 59 in Wt: 177 lbs BSA: 1.87 m2 HR: 84 bpm BP: 131 / 42 mmHg Heart Rhythm: Sinus Rhythm Technical Quality: Good Exam Date: 02/20/2025 12:48 PM Patient Status: I Admit Date: 02/19/2025 Exam Type: CA echo doppler color flow Complete two-dimensional, color flow and Doppler transthoracic echocardiogram is performed. Staff Referring Physician: Garfield Betancur MD [place] Operator: Renetta Graves Attending Provider: Brandi Sutton Summary 1. Complete two-dimensional, color flow and Doppler transthoracic echocardiogram is performed. 2. Left ventricular chamber dimension is normal. 3. Left ventricular systolic function is normal, estimated at 65-70. 4. There is mildly increased left ventricular wall thickness. 5. The left ventricular diastolic function is grade I diastolic dysfunction. 6. Left atrial chamber dimension is mildly enlarged. 7. There is mild aortic valve stenosis with a peak velocity of 253 cm/s, mean gradient of 15 mmHg, and aortic valve area of 2.0 cm2. 8. There is mild mitral valve regurgitation. 9. There is mild tricuspid valve regurgitation. Left Ventricle Left ventricular chamber dimension is normal. Left ventricular systolic function is normal, estimated at 65-70. There is mildly increased left ventricular wall thickness. The left ventricular diastolic function is grade I diastolic dysfunction. Right Ventricle Right ventricular chamber dimension is normal. Right ventricular systolic function is normal. Left Atria Left atrial chamber dimension is mildly enlarged. Right Atria Right atrial chamber dimension is normal. Atrial Septum Intact interatrial septum visualized by color flow imaging. Aortic Valve The aortic valve is probable trileaflet. There is mild aortic valve stenosis with a peak velocity of 253 cm/s, mean gradient of 15 mmHg, and aortic valve area of 2.0 cm2. There is trace aortic valve regurgitation. Pulmonic Valve The pulmonic valve is normal. There is no pulmonic valve stenosis. There is trace pulmonic regurgitation. Mitral Valve The mitral valve has a calcified annulus. There is no mitral valve stenosis. There is mild mitral valve regurgitation. Tricuspid Valve The tricuspid valve leaflets are normal. There is no significant tricuspid valve stenosis. There is mild tricuspid valve regurgitation. Pericardium/Pleural The pericardium appears normal. There is no pericardial effusion. Inferior Vena Cava Normal inferior vena cava with <50% collapse upon inspiration consistent with elevated right atrial pressure, 10 mmHg. Aorta The aortic root size at the sinus of Valsalva is normal. Left Ventricular Outflow Tract Name Value Normal LVOT 2D LVOT Diameter 2.0 cm LVOT Doppler LVOT Peak Velocity 160 cm/s LVOT Peak Gradient 10 mmHg LVOT Mean Gradient 7 mmHg LVOT VTI 35 cm LVOT VTI/AV VTI Ratio 0.6 LVOT Stroke Volume 107 ml LVOT CO 9.1 l/min LVOT CI 4.9 l/min/m2 Pulmonic Valve Name Value Normal RVOT Doppler RVOT Peak Velocity 81 cm/s RVOT Peak Gradient 3 mmHg PV Doppler PV Peak Velocity 92 cm/s PV Peak Gradient 3 mmHg Mitral Valve Name Value Normal MV Diastolic Function MV E Peak Velocity 128 cm/s MV A Peak Velocity 125 cm/s MV E/A 1.0 MV Decel Time (PW) 214 ms MV Annular TDI MV E/e' (Septal) 17.2 MV E/e' (Lateral) 17.0 MV E/e' (Average) 17.1 Tricuspid Valve Name Value Normal Estimated PAP/RSVP RA Pressure 10 mmHg <=5 Aortic Valve Name Value Normal AV Doppler AV Peak Velocity 253 cm/s AV Peak Gradient 26 mmHg AV Mean Gradient 15 mmHg AV VTI 55 cm AV Area (Cont Eq VTI) 2.0 cm2 >=3.0 AV Area (Cont Eq Naun) 1.9 cm2 AV DI (Naun) 0.63 AV Regurgitation 2D LVOT Area 3.1 cm2 Ventricles Name Value Normal LV Dimensions 2D/MM IVS Diastolic Thickness (2D) 1.0 cm 0.6-1.0 LVID Diastole (2D) 3.8 cm 3.8-5.2 LVIW Diastolic Thickness (2D) 1.1 cm 0.6-0.9 LVID Systole (2D) 2.5 cm 2.2-3.5 LVOT Diameter 2.0 cm LV Mass (2D Cubed) 132.54 g 67.00-162.00 LV Mass Index (2D Cubed) 71 g/m2 43-95 Relative Wall Thickness (2D) 0.60 <=0.42 LV Fractional Shortening/Ejection Fraction 2D/MM LV Fractional Shortening (2D) 34 % 27-45 LV EF (2D Teichholz) 64 % LV Diastolic Volume (4C MOD) 81 ml LV EF (4C MOD) 74 % LV Diastolic Volume (2C MOD) 81 ml LV EF (2C MOD) 59 % LV Diastolic Volume (BP MOD) 82 ml 46-106 LV Diastolic Volume Index (BP MOD) 44 ml/m2 29-61 LV Systolic Volume (BP MOD) 27 ml 14-42 LV Systolic Volume Index (BP MOD) 14 ml/m2 8-24 LV EF (BP MOD) 68 % 54-74 LV Diastolic Length (4C) 7.2 cm LV Systolic Length (4C) 5.8 cm LV Stroke Volume (4C MOD) 60 ml Atria Name Value Normal LA Dimensions LA Volume (4C A-L) 30 ml LA Volume (BP A-L) 43 ml RA Dimensions RA Systolic Major [place] Length (4C) 4.8 cm 2.2-2.8 RA Area (4C) 12.8 cm2 <=18.0 Report Signatures
--- NOTE | 2025-02-20 03:25 | ADMGEN ---
This patient, Loretta Quintana, was admitted to [address] [place] [address] Room 331-02 from ED after being found by neighbor on the floor for unknown amount of time. Patient/family oriented to hospital policies and general routines including ID bracelet, bed and alarms, visiting hours, pain management, procedures, bathroom and other care routines, personal items, smoking policy, room service/diet, and visiting hours. Information on how to activate the Rapid Response Team has been discussed. Patient/Family are encouraged to report perceived risks to care and to ask questions if they do not understand what they are told or what they should do.
[2025-02-20 06:00] VITALS: BP 131/42; PULSE 82; RESP 20; TEMP 36.9; O2SAT 98
[2025-02-20] MEDS: SODIUM CHLORIDE 0.9% IV 1,000 ML 125 ML IV CONT (06:02)
[2025-02-20 06:40] LABS: Hematocrit 26.1 % (37.0-47.0); Hemoglobin 8.0 g/dL (12.0-15.0); Mean Corpuscular HGB Conc 30.7 g/dl (32-36); Mean Corpuscular Hemoglobin 28.6 pg (26-34); Mean Corpuscular Volume 93.2 fl (80-100); Platelet Count Result 252 k/mm3 (150-375); Red Blood Count 2.80 M/mm3 (4.2-5.4); White Blood Count 6.4 K/mm3 (4.5-10.0)
[2025-02-20 07:01] LABS: Alanine Aminotransferase 24 U/L (6-35); Albumin Level 2.5 g/dL (3.5-5.1); Alkaline Phosphatase 91 U/L (38-126); Anion Gap 5 mmol/L (4-12); Aspartate Amino Transferase 53 U/L (14-36); Bilirubin,Total 0.5 mg/dL (0.2-1.3); Blood Urea Nitrogen 48 mg/dL (7-17); Calcium 8.0 mg/dL (8.4-10.2); Carbon Dioxide 23 mmol/L (22-30); Chloride 111 mmol/L (98-107); Creatine Kinase 223 U/L (30-135); Estimated Glomerular Filt Rate > 60; Glucose 169 mg/dL (65-110); Magnesium 1.7 mg/dL (1.6-2.3); Potassium 3.6 mmol/L (3.4-5.0); Sodium 139 mmol/L (137-145); Total Protein 5.0 g/dL (6.3-8.2)
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
[2025-02-20 07:31] LABS: Thyroid Stimulating Hormone Reflex < 0.015 uIU/mL (0.465-4.68)
--- NOTE | 2025-02-20 07:34 | PC.NURSE ---
Patient requested her daughter to be removed from the [facility] and put her friend Bhavna Barker, and would not want her family members to be notified that the patient is at hospital
[2025-02-20] MEDS: FENOFIBRATE NANOCRYSTALLIZED 145 MG TABLET PO (09:02)
--- NOTE | 2025-02-20 10:46 | P.PNIM_ITS ---
Progress Note: A&P Assessment and Plan (1) Rhabdomyolysis: Qualifiers: Rhabdomyolysis type: non-traumatic Qualified Code(s): M62.82 - Rhabdomyolysis Code(s): M62.82 - Rhabdomyolysis Status: Acute Assessment and Plan: * Related to fall and prolonged time on floor * PT/OT * 02/20/2025 Hold fenofibrate (2) Acute UTI: Code(s): N39.0 - Urinary tract infection, site not specified Status: Acute Assessment and Plan: * Abnormal urinalysis with culture pending * Likely cause of elevated CRP * Continue ceftriaxone begun 02/19/2025 (3) Iron deficiency anemia, unspecified: Qualifiers: Iron deficiency anemia type: unspecified iron deficiency Qualified Code(s): D50.9 - Iron deficiency anemia, unspecified Code(s): D50.9 - Iron deficiency anemia, unspecified Status: Acute Assessment and Plan: * No prior iron level in [facility] records * History of recent dark stool and worsened anemia on labs are concerning for gastrointestinal blood loss * Anemia evaluation ordered (4) Brain mass: Code(s): G93.89 - Other specified disorders of brain Status: Acute Assessment and Plan: * Brain CT 02/19/2025: Peripherally calcified mass in the right posterior fossa measuring 3 x 2.4 cm with mass effect on the cerebellum. The intra versus extra-axial location is indeterminate. * 02/20/2025 MRI brain with and without contrast pending (5) Fall: Qualifiers: Encounter type: initial encounter Qualified Code(s): W19.XXXA - Uns pecified fall, initial encounter Code(s): W19.XXXA - Unspecified fall, initial encounter Status: Acute Assessment and Plan: * Fall from standing height without known loss of consciousness or head trauma (6) Protein calorie malnutrition: Code(s): E46 - Unspecified protein-calorie malnutrition Status: Acute Assessment and Plan: * Total protein 5.0 and albumin 2.5 prior to hydration with IV fluids * Encourage PO intake (7) PAT (acute kidney injury): Code(s): N17.9 - Acute kidney failure, unspecified Status: Acute Assessment and Plan: * 02/20 resolved after hydration with creatinine improving from 1.13-0.89 (8) Generalized weakness: Code(s): R53.1 - Weakness Status: Acute Assessment and Plan: * Urinary infection versus worsened anemia versus thyrotoxicosis * Protein calorie malnutrition by labs * Probable underlying chronic deconditioning (9) Essential hypertension: Code(s): I10 - Essential (primary) hypertension Status: Acute Assessment and Plan: * 02/20/2025 131/42 (10) Type 2 diabetes mellitus with hyperglycemia, with long-term current use of insulin: Code(s): E11.65 - Type 2 diabetes mellitus with hyperglycemia; Z79.4 - care home (current) use of insulin Status: Acute Assessment and Plan: * 02/20/25 FBS 165 (11) Multinodular goiter: Code(s): E04.2 - Nontoxic multinodular goiter Status: Acute Assessment and Plan: * FNA in 2022 consistent with benign follicular nodules * 02/19/2025 TSH suppressed and free T4 pending, possible hyperthyroidism versus subclinical hyperthyroidism versus sick euthyroid syndrome (12) Incisional hernia with obstruction but no gangrene: Code(s): K43.0 - Incisional hernia with obstruction, without gangrene Status: Acute Assessment and Plan: * Chronic and asymptomatic (13) Heart murmur: Code(s): R01.1 - Cardiac murmur, unspecified Status: Acute Assessment and Plan: * 02/20/2025 Echo ordered Subjective Date/time seen: 02/20/25 10:46 Interval history: 79-year-old female was admitted February 19 after falling and being on floor since February 17 in the evening. She was incontinent of stool and urine while on the floor. She notes that her stool was unusually dark. She did not pass out or hit her head. She denied any focal weakness or numbness. Denied chest pain or shortness of breath. Was not aware she had a history of anemia. Last colonoscopy was 2018 with internal hemorrhoids and diverticulosis noted. Denied any loss of bright red blood. Denied chest pain shortness of breath syncope presyncope or dizziness. Denied focal weakness or numbness. Denied dysuria or hematuria. Denied headaches. Review of Systems Review of Systems: All systems reviewed & are unremarkable except as noted in HPI and below Exam Narrative: HEENT: EOMI, PERRL, sclerae nonicteric, pharyngeal mucosa pink and intact NECK: No JVD or adenopathy, small irregular goiter CHEST: Clear to auscultation, normal effort HEART: NL S1/S2, regular, 3/6 systolic ejection murmur right upper sternal border radiating to carotids, 2/6 apical systolic murmur radiating to axilla ABDOMEN: BS+, soft, nontender, nontender ventral hernia EXTREMITIES: Trace pretibial pitting edema NEUROLOGIC: CN intact and symmetric to inspection. MUSCULOSKELETAL: Tone and strength symmetric PSYCH: Alert, oriented to person, place, and time Objective Data Vital Signs Vital Signs: Vital Signs - 24 hr 02/19/25 16:23 02/19/25 16:37 02/19/25 17:41 Temperature 98.8 F Pulse Rate 101 H 101 H 94 Respiratory Rate 30 H 18 Blood Pressure 154/51 H 148/41 H Pulse Oximetry 99 99 Oxygen Delivery Room Air 02/19/25 18:49 02/19/25 22:00 02/20/25 06:00 Temperature 98.4 F 98.4 F Pulse Rate 99 95 82 Respiratory Rate 17 16 20 Blood Pressure 147/92 H 125/54 L 131/42 L Pulse Oximetry 100 99 98 Oxygen Delivery Intake/Output Intake/Output: Intake & Output 02/17/25 02/18/25 02/19/25 02/20/25 23:59 23:59 23:59 23:59 Intake Total 50 1710 Output Total 250 Balance -200 1710 Meds/Results Medications: Active Medications Generic Name Dose Route Start Last Admin Trade Name Freq PRN Reason Stop Dose Admin Acetaminophen 650 mg 02/19/25 18:12 Acetaminophen 325 Mg Tablet PO Q4H PRN Mild Pain (1-3) or Fever Hydrocodone Bitart/Acetaminophen 1 tab 02/19/25 18:12 Hydrocodone/Acetaminophen (*Crx) 5-325 Mg Tablet PO Q4H PRN Pain Rated 4-6 Dextrose 12.5 gm 02/19/25 23:47 Dextrose 50% 25 Gm/50 Ml Syringe IV PUSH PRN PRN Hypoglycemia Protocol Fenofibrate 145 mg 02/20/25 09:00 02/20/25 09:02 Fenofibrate Nanocrystallized 145 Mg Tablet PO 145 mg QAM LIANNE Administration Glucagon 1 mg 02/19/25 23:47 Glucagon For Inj 1 Mg Vial IM PRN PRN Hypoglycemia Protocol Glucose 15 gm 02/19/25 23:47 Glucose Oral Gel 15 Gm Of Glucse In 37.5 Gm Tube PO PRN PRN Hypoglycemia Protocol Ceftriaxone Sodium 1 gm/ 50 mls @ 100 mls/hr 02/20/25 17:00 Sodium Chloride IVPB Q24H LIANNE Sodium Chloride 1,000 mls @ 125 mls/hr 02/19/25 18:15 02/20/25 06:02 Normal Saline Iv IV CONT 125 mls/hr .Q8H LIANNE Administration Dextrose 1,000 mls @ 100 mls/hr 02/19/25 23:47 Dextrose 5% 1,000 Ml IVPB PRN PRN Hypoglycemia Protocol Insulin Aspart 2 - 5 units 02/20/25 08:00 02/20/25 07:57 Insulin Aspart (*Bkc) 100 Units/Ml SUB-Q Not Given TIDWM LIANNE Protocol Morphine Sulfate 2 mg 02/19/25 18:12 Morphine Sulfate (*Crx) 2 Mg/Ml Inj IV PUSH Q2H PRN Pain Rated 7-10 Ondansetron HCl 4 mg 02/19/25 18:12 Ondansetron Inj 4 Mg/2 Ml Vial IV PUSH Q4H PRN Nausea Radiology Results: ITS Impressions Head CT 02/19/25 17:57 IMPRESSION: 1. 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 The intra versus extra-axial location is indeterminate. Differential diagnosis includes meningioma, oligodendroglioma, calcified metastases. Recommend MRI brain with and without contrast. Labs Labs: Laboratory Results - last 24 hr 02/19/25 02/19/25 02/19/25 16:32 16:40 16:57 WBC 13.5 H RBC 3.36 L Hgb 9.7 L Hct 31.6 L MCV 94.0 MCH 28.9 MCHC 30.7 L RDW 15.2 H Plt Count 380 H MPV 9.6 Immature Gran % (Auto) 0.4 Neut % (Auto) 77.5 H Lymph % (Auto) 13.1 L [place] % (Auto) 8.9 H Eos % (Auto) 0.0 Baso % (Auto) 0.1 L Lymph # (Auto) 1.78 [place] # (Auto) 1.2 H Eos # (Auto) 0.0 Baso # (Auto) 0.0 Abs Immat Gran (auto) 0.06 H Absolute Neuts (auto) 10.5 H Absolute Nucleated RBC 0.000 Nucleated RBC % 0.0 PT 15.3 H INR 1.2 APTT 36.0 Sodium 144 Potassium 4.5 Chloride 111 H Carbon Dioxide 15 L Anion Gap 18 H BUN 45 H D Creatinine 1.12 H Estim Creat Clear Calc Not Reportable Estimated GFR 47 L Glucose 191 H POC Capillary Glucose 176 H Lactic Acid 1.3 Calcium 9.0 Phosphorus Magnesium Total Bilirubin 1.3 AST 51 H ALT 27 Alkaline Phosphatase 81 Total Creatine Kinase 413 H Troponin I 0.029 C-Reactive Protein 13.4 H Total Protein 6.1 L Albumin 3.3 L TSH (Reflex) Urine Color Dark yellow Urine Appearance Turbid H Urine pH 5.0 Ur Specific [place] 1.019 Urine Protein 2+ H Urine Glucose (UA) Negative Urine Ketones 1+ H Ur Blood (Man) Trace Urine Nitrate Negative Urine Bilirubin 3+ H Urine Urobilinogen 1.0 Add Ur Microanalysis Reviewed Leukocyte Esterase Rfl 3+ H Urine RBC 0-2 Urine WBC >100 H Ur Squamous Epith Cells None seen Urine Bacteria 4+ H Urine Casts >20 Hyaline Casts Present 02/20/25 02/20/25 02/20/25 06:23 06:24 07:42 WBC 6.4 RBC 2.80 L Hgb 8.0 L Hct 26.1 L MCV 93.2 MCH 28.6 MCHC 30.7 L RDW 15.2 H Plt Count 252 MPV 9.2 Immature Gran % (Auto) Neut % (Auto) Lymph % (Auto) [place] % (Auto) Eos % (Auto) Baso % (Auto) Lymph # (Auto) [place] # (Auto) Eos # (Auto) Baso # (Auto) Abs Immat Gran (auto) Absolute Neuts (auto) Absolute Nucleated RBC Nucleated RBC % PT INR APTT Sodium 139 Potassium 3.6 Chloride 111 H Carbon Dioxide 23 Anion Gap 5 BUN 48 H Creatinine 0.89 Estim Creat Clear Calc Not Reportable Estimated GFR > 60 Glucose 169 H POC Capillary Glucose 165 H Lactic Acid Calcium 8.0 L Phosphorus 2.9 Magnesium 1.7 Total Bilirubin 0.5 AST 53 H ALT 24 Alkaline Phosphatase 91 Total Creatine Kinase 223 H Troponin I C-Reactive Protein Total Protein 5.0 L Albumin 2.5 L TSH (Reflex) < 0.015 L Urine Color Urine Appearance Urine pH Ur Specific [place] Urine Protein Urine Glucose (UA) Urine Ketones Ur Blood (Man) Urine Nitrate Urine Bilirubin Urine Urobilinogen Add Ur Microanalysis Leukocyte Esterase Rfl Urine RBC Urine WBC Ur Squamous Epith Cells Urine Bacteria Urine Casts Hyaline Casts
[2025-02-20 11:57] LABS: Immature Reticulocyte Fraction 11.9 % (3.0-15.9); Reticulocyte Hemoglobin Conten 30.4 pg (28.2-36.6); Reticulocytes Absolute 0.05 10^6/uL (0.02-0.10)
[2025-02-20 11:58] LABS: Iron 21 ug/dL (37-170)
[2025-02-20 12:08] LABS: Percent Iron Saturation 7 % (20-50)
[2025-02-20 13:05] LABS: Vitamin B12 272.0 pg/mL (239-931)
[2025-02-20 14:00] VITALS: BP 133/47; PULSE 76; RESP 16; TEMP 37.3; O2SAT 98
[2025-02-20] MEDS: IRON SUCROSE COMPLEX 200 MG, IRON SUCROSE COMPLEX 100 MG in SODIUM CHLORIDE 0.9% IV 250 ML 176.7 MG IVPB (14:46)
[2025-02-20 14:58] LABS: Free T4 Free Thyroxine Reflex 1.93 ng/dL (0.78-2.19)
[2025-02-20 16:01] LABS: Total Triiodothyronine (T3) 0.86 NG/ML (0.82-1.58)
[2025-02-20] MEDS: SODIUM CHLORIDE 0.9% IV 1,000 ML 70 ML IV CONT (17:46)
[2025-02-20] MEDS: cefTRIAXone 1 GM in SODIUM CHLORIDE 0.9% IV 50 ML 100 ML IVPB (17:46)
[2025-02-20 19:52] LABS: IFOB Positive Control Positive; Immunochemical Fecal Occult Bl Negative (N)
[2025-02-20 21:37] VITALS: BP 128/48; PULSE 79; RESP 20; TEMP 36.9; O2SAT 96
[2025-02-21] MEDS: INSULIN ASPART (*BKC) 100 UNITS/ML SUB-Q ×3 (00:55→17:56)
[2025-02-21] MEDS: ACETAMINOPHEN 325 MG TABLET 650 MG PO (04:14)
[2025-02-21 06:00] VITALS: BP 119/49; PULSE 75; RESP 16; TEMP 36.9; O2SAT 98
[2025-02-21 06:32] LABS: Hematocrit 28.0 % (37.0-47.0); Hemoglobin 8.7 g/dL (12.0-15.0); Mean Corpuscular HGB Conc 31.1 g/dl (32-36); Mean Corpuscular Hemoglobin 28.9 pg (26-34); Mean Corpuscular Volume 93.0 fl (80-100); Platelet Count Result 258 k/mm3 (150-375); Red Blood Count 3.01 M/mm3 (4.2-5.4); White Blood Count 4.3 K/mm3 (4.5-10.0)
[2025-02-21 06:54] LABS: Alanine Aminotransferase 24 U/L (6-35); Albumin Level 2.5 g/dL (3.5-5.1); Alkaline Phosphatase 75 U/L (38-126); Anion Gap 4 mmol/L (4-12); Aspartate Amino Transferase 41 U/L (14-36); Bilirubin,Total 0.4 mg/dL (0.2-1.3); Blood Urea Nitrogen 39 mg/dL (7-17); Calcium 7.6 mg/dL (8.4-10.2); Carbon Dioxide 22 mmol/L (22-30); Chloride 113 mmol/L (98-107); Creatine Kinase 143 U/L (30-135); Estimated Glomerular Filt Rate > 60; Glucose 142 mg/dL (65-110); Potassium 3.4 mmol/L (3.4-5.0); Sodium 139 mmol/L (137-145); Total Protein 5.2 g/dL (6.3-8.2)
[2025-02-21] MEDS: FOLIC ACID 1 MG TABLET PO (09:42)
[2025-02-21] MEDS: CYANOCOBALAMIN 1,000 MCG TABLET 1000 MCG PO (09:43)
[2025-02-21] MEDS: SODIUM CHLORIDE 0.9% IV 1,000 ML 70 ML IV CONT (09:44)
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
--- NOTE | 2025-02-21 12:52 | P.PNIM_ITS ---
Progress Note: A&P Assessment and Plan (1) Rhabdomyolysis: Qualifiers: Rhabdomyolysis type: non-traumatic Qualified Code(s): M62.82 - Rhabdomyolysis Code(s): M62.82 - Rhabdomyolysis Status: Acute Assessment and Plan: * Related to fall and prolonged time on floor * PT/OT * 02/20/2025 Hold fenofibrate * 02/21/2025 D/c IVF as CK 143 (2) Acute UTI: Code(s): N39.0 - Urinary tract infection, site not specified Status: Acute Assessment and Plan: * Abnormal urinalysis with culture pending * Likely cause of elevated CRP * Continue ceftriaxone begun 02/19/2025 * 02/21/2025 urine C/s still pending (3) Iron deficiency anemia, unspecified: Qualifiers: Iron deficiency anemia type: unspecified iron deficiency Qualified Code(s): D50.9 - Iron deficiency anemia, unspecified Code(s): D50.9 - Iron deficiency anemia, unspecified Status: Acute Assessment and Plan: * No prior iron level in [facility] records * History of recent dark stool and worsened anemia on labs are concerning for gastrointestinal blood loss * 02/20/2025 iron sucrose 300 mg IV * Hgb 02/20 8.0, 02/21 8.7 (4) Brain mass: Code(s): G93.89 - Other specified disorders of brain Status: Acute Assessment and Plan: * Brain CT 02/19/2025: Peripherally calcified mass in the right posterior fossa measuring 3 x 2.4 cm with mass effect on the cerebellum. The intra versus extra-axial location is indeterminate. * 02/21/2025 Brain MRI reviewed and appears to show right posterior fossa calcified mass but official reading is still pending, however this is likely chronic and benign but will ask for neurology opinion (5) Fall: Qualifiers: Encounter type: initial encounter Qualified Code(s): W19.XXXA - Unspecified fall, initial encounter Code(s): W19.XXXA - Unspecified fall, initial encounter Status: Acute Assessment and Plan: * Fall from standing height without known loss of consciousness or head trauma (6) Protein calorie malnutrition: Code(s): E46 - Unspecified protein-calorie malnutrition Status: Acute Assessment and Plan: * Total protein 5.0 and albumin 2.5 prior to hydration with IV fluids * Encourage PO intake (7) PAT (acute kidney injury): Code(s): N17.9 - Acute kidney failure, unspecified Status: Acute Assessment and Plan: * 02/20 resolved after hydration with creatinine improving from 1.13-0.89 (8) Generalized weakness: Code(s): R53.1 - Weakness Status: Acute Assessment and Plan: * Urinary infection versus worsened anemia versus thyrotoxicosis * Protein calorie malnutrition by labs * Probable underlying chronic deconditioning (9) Essential hypertension: Code(s): I10 - Essential (primary) hypertension Status: Acute Assessment and Plan: * 02/20/2025 131/42 (10) Type 2 diabetes mellitus with hyperglycemia, with long-term current use of insulin: Code(s): E11.65 - Type 2 diabetes mellitus with hyperglycemia; Z79.4 - detention (current) use of insulin Status: Acute Assessment and Plan: * 02/20/25 FBS 165, 02/21 146 (11) Multinodular goiter: Code(s): E04.2 - Nontoxic multinodular goiter Status: Inactive Assessment and Plan: * FNA in 2022 consistent with benign follicular nodules * 02/19/2025 TSH suppressed but FT4 1.93, c/w subclinical hyperthyroidism (12) Heart murmur: Code(s): R01.1 - Cardiac murmur, unspecified Status: Acute Assessment and Plan: * 02/21/2025 Echo with mild and MR: 1. Complete two-dimensional, color flow and Doppler transthoracic echocardiogram is performed. 2. Left ventricular chamber dimension is normal. 3. Left ventricular systolic function is normal, estimated at 65-70. 4. There is mildly increased left ventricular wall thickness. 5. The left ventricular diastolic function is grade I diastolic dysfunction. 6. Left atrial chamber dimension is mildly enlarged. 7. There is mild aortic valve stenosis with a peak velocity of 253 cm/s, mean gradient of 15 mmHg, and aortic valve area of 2.0 cm2. 8. There is mild mitral valve regurgitation. 9. There is mild tricuspid valve regurgitation. 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 Denied abdominal pain. Stool still dark. They look like chocolate fudge. Review of Systems Review of Systems: All systems reviewed & are unremarkable except as noted in HPI and below Exam Narrative: HEENT: EOMI, PERRL, sclerae nonicteric, pharyngeal mucosa pink and intact NECK: No JVD or adenopathy, small irregular goiter CHEST: Clear to auscultation, normal effort HEART: NL S1/S2, regular, 3/6 systolic ejection murmur right upper sternal border radiating to carotids, 2/6 apical systolic murmur radiating to axilla ABDOMEN: BS+, soft, nontender, nontender ventral hernia EXTREMITIES: Trace pretibial pitting edema NEUROLOGIC: CN intact and symmetric to inspection. MUSCULOSKELETAL: Tone and strength symmetric PSYCH: Alert, oriented to person, place, and time Objective Data Vital Signs Vital Signs: Vital Signs - 24 hr 02/20/25 14:00 02/20/25 20:00 02/20/25 21:37 Temperature 99.2 F 98.5 F Pulse Rate 76 79 Respiratory Rate 16 20 Blood Pressure 133/47 L 128/48 L Pulse Oximetry 98 96 Oxygen Delivery Room Air 02/21/25 06:00 02/21/25 08:00 Temperature 98.5 F Pulse Rate 75 Respiratory Rate 16 Blood Pressure 119/49 L Pulse Oximetry 98 Oxygen Delivery Room Air Intake/Output Intake/Output: Intake & Output 02/18/25 02/19/25 02/20/25 02/21/25 23:59 23:59 23:59 23:59 Intake Total 50 4290 1340 Output Total 250 Balance -200 4290 1340 Meds/Results Medications: Active Medications Generic Name Dose Route Start Last Admin Trade Name Freq PRN Reason Stop Dose Admin Acetaminophen 650 mg 02/19/25 18:12 02/21/25 04:14 Acetaminophen 325 Mg Tablet PO 650 mg Q4H PRN Administration Mild Pain (1-3) or Fever Hydrocodone Bitart/Acetaminophen 1 tab 02/19/25 18:12 Hydrocodone/Acetaminophen (*Crx) 5-325 Mg Tablet PO Q4H PRN Pain Rated 4-6 Cyanocobalamin 1,000 mcg 02/21/25 09:00 02/21/25 09:43 Cyanocobalamin 1,000 Mcg Tablet PO 1,000 mcg QAM LIANNE Administration Dextrose 12.5 gm 02/19/25 23:47 Dextrose 50% 25 Gm/50 Ml Syringe IV PUSH PRN PRN Hypoglycemia Protocol Folic Acid 1 mg 02/21/25 09:00 02/21/25 09:42 Folic Acid 1 Mg Tablet PO 1 mg DAILY LIANNE Administration Glucagon 1 mg 02/19/25 23:47 Glucagon For Inj 1 Mg Vial IM PRN PRN Hypoglycemia Protocol Glucose 15 gm 02/19/25 23:47 Glucose Oral Gel 15 Gm Of Glucse In 37.5 Gm Tube PO PRN PRN Hypoglycemia Protocol Ceftriaxone Sodium 1 gm/ 50 mls @ 100 mls/hr 02/20/25 17:00 02/20/25 17:46 Sodium Chloride IVPB 100 mls/hr Q24H LIANNE Administration Sodium Chloride 1,000 mls @ 70 mls/hr 02/19/25 18:15 02/21/25 09:44 Normal Saline Iv IV CONT 70 mls/hr .[id number] LIANNE Administration Dextrose 1,000 mls @ 100 mls/hr 02/19/25 23:47 Dextrose 5% 1,000 Ml IVPB PRN PRN Hypoglycemia Protocol Insulin Aspart 2 - 5 units 02/20/25 08:00 02/21/25 12:28 Insulin Aspart (*Bkc) 100 Units/Ml SUB-Q 2 units TIDWM LIANNE Administration Protocol Morphine Sulfate 2 mg 02/19/25 18:12 Morphine Sulfate (*Crx) 2 Mg/Ml Inj IV PUSH Q2H PRN Pain Rated 7-10 Ondansetron HCl 4 mg 02/19/25 18:12 Ondansetron Inj 4 Mg/2 Ml Vial IV PUSH Q4H PRN Nausea Perflutren Lipid Microsphere 0 ml 02/20/25 11:27 Perflutren Lipid Microspheres 1.5 Ml Vial Diluted To 10 Ml Total Volume IV PUSH 02/23/25 11:27 ONCE PRN adequate visualization Protocol Radiology Results: ITS Impressions Head CT 02/19/25 17:57 IMPRESSION: 1. 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 The intra versus extra-axial location is indeterminate. Differential diagnosis includes meningioma, oligodendroglioma, calcified metastases. Recommend MRI brain with and without contrast. Labs Labs: Laboratory Results - last 24 hr 02/20/25 02/20/2502/20/25 06:15 06:23 16:38 WBC RBC Hgb Hct MCV MCH MCHC RDW Plt Count MPV Sodium Potassium Chloride Carbon Dioxide Anion Gap BUN Creatinine Estim Creat Clear Calc Estimated GFR Glucose POC Capillary Glucose 198 H Calcium Total Bilirubin AST ALT Alkaline Phosphatase Total Creatine Kinase Total Protein Albumin Vitamin B12 272.0 Folate 9.8 Free T4 1.93 Total T3 0.86 Stl Occult Blood (IFOB) 02/20/25 02/20/25 02/21/25 17:51 20:29 00:26 WBC RBC Hgb Hct MCV MCH MCHC RDW Plt Count MPV Sodium Potassium Chloride Carbon Dioxide Anion Gap BUN Creatinine Estim Creat Clear Calc Estimated GFR Glucose POC Capillary Glucose 337 H 261 H Calcium Total Bilirubin AST ALT Alkaline Phosphatase Total Creatine Kinase Total Protein Albumin Vitamin B12 Folate Free T4 Total T3 Stl Occult Blood (IFOB) Negative 02/21/25 02/21/25 02/21/25 06:18 07:31 11:49 WBC 4.3 L RBC 3.01 L Hgb 8.7 L Hct 28.0 L MCV 93.0 MCH 28.9 MCHC 31.1 L RDW 15.1 H Plt Count 258 MPV 9.4 Sodium 139 Potassium 3.4 Chloride 113 H Carbon Dioxide 22 Anion Gap 4 BUN 39 H Creatinine 0.70 Estim Creat Clear Calc Not Reportable Estimated GFR > 60 Glucose 142 H POC Capillary Glucose 146 H 215 H Calcium 7.6 L Total Bilirubin 0.4 AST 41 H ALT 24 Alkaline Phosphatase 75 Total Creatine Kinase 143 H Total Protein 5.2 L Albumin 2.5 L Vitamin B12 Folate Free T4 Total T3 Stl Occult Blood (IFOB)
[2025-02-21 14:00] VITALS: BP 155/57; PULSE 85; RESP 20; TEMP 37.2; O2SAT 98
[2025-02-21] MEDS: cefTRIAXone 1 GM in SODIUM CHLORIDE 0.9% IV 50 ML 100 ML IVPB (16:31)
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
[2025-02-21 22:26] VITALS: BP 149/54; PULSE 82; RESP 14; TEMP 36.8; O2SAT 98
[2025-02-22] VITALS (7 sets, daily range): BP systolic 146–189; BP diastolic 49–74; PULSE 76–85; RESP 14–27; TEMP 36.5–37.1; O2SAT 97–100
[2025-02-22 08:41] LABS: Hematocrit 28.9 % (37.0-47.0); Hemoglobin 9.0 g/dL (12.0-15.0); Immature Granulocyte Percent A 0.6 % (0-0.5); Lymphocytes Absolute Auto 1.01 K/mm3 (0.9-3.2); Mean Corpuscular HGB Conc 31.1 g/dl (32-36); Mean Corpuscular Hemoglobin 29.1 pg (26-34); Mean Corpuscular Volume 93.5 fl (80-100); Nucleated Red Blood Cells Absolute Auto 0.000 K/mm3 (0.0-0.012); Nucleated Red Blood Cells Perc 0.0 % (0.0-0.2); Platelet Count Result 283 k/mm3 (150-375); Red Blood Count 3.09 M/mm3 (4.2-5.4); White Blood Count 3.3 K/mm3 (4.5-10.0)
[2025-02-22] MEDS: FOLIC ACID 1 MG TABLET PO (08:56)
[2025-02-22] MEDS: CYANOCOBALAMIN 1,000 MCG TABLET 1000 MCG PO (08:56)
[2025-02-22 09:01] LABS: Hemoglobin A1C 5.4 % (<5.7)
[2025-02-22 09:08] LABS: Alanine Aminotransferase 24 U/L (6-35); Albumin Level 2.6 g/dL (3.5-5.1); Alkaline Phosphatase 79 U/L (38-126); Anion Gap 2 mmol/L (4-12); Aspartate Amino Transferase 40 U/L (14-36); Bilirubin,Total 0.3 mg/dL (0.2-1.3); Blood Urea Nitrogen 23 mg/dL (7-17); Calcium 8.3 mg/dL (8.4-10.2); Carbon Dioxide 26 mmol/L (22-30); Chloride 113 mmol/L (98-107); Creatine Kinase 72 U/L (30-135); Estimated Glomerular Filt Rate > 60; Glucose 160 mg/dL (65-110); Magnesium 1.7 mg/dL (1.6-2.3); Potassium 3.6 mmol/L (3.4-5.0); Sodium 141 mmol/L (137-145); Total Protein 5.4 g/dL (6.3-8.2)
--- NOTE | 2025-02-22 12:38 | P.PNIM_ITS ---
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 Code(s): E11.9 - Type 2 diabetes mellitus without complications Status: Acute (3) PAT (acute kidney injury): Code(s): N17.9 - Acute kidney failure, unspecified Status: Acute (4) Iron deficiency anemia: Code(s): D50.9 - Iron deficiency anemia, unspecified Status: Acute (5) Rhabdomyolysis: Qualifiers: Rhabdomyolysis type: non-traumatic Qualified Code(s): M62.82 - Rhabdomyolysis Code(s): M62.82 - Rhabdomyolysis Status: Acute (6) Fall: Qualifiers: Encounter type: initial encounter Qualified Code(s): W19.XXXA - Unspecified fall, initial encounter Code(s): W19.XXXA - Unspecified fall, initial encounter Status: Acute (7) Brain mass: Code(s): G93.89 - Other specified disorders of brain Status: Acute Plan 79-year-old female with a past medical history of subclinical hyperthyroidism, type 2 diabetes mellitus, essential hypertension and chronic anemia who presented to the ER via EMS from home after she was found down on the floor. 1) Rhabdomyolysis: CPK levels less than 100 today Rhabdomyolysis has resolved 2) Urinary tract infection: Continue with ceftriaxone Await urine culture (3) Iron deficiency anemia: IV iron on 02/20/2025 Hemoglobin stable at 9 GI following NPO today Plan for EGD today (4) Brain mass: Brain CT 02/19/2025: Peripherally calcified mass in the right posterior fossa measuring 3 x 2.4 cm with mass effect on the cerebellum. The intra versus extra- axial location is indeterminate. Await MRI brain Neurology following (5) Fall: PT/OT as tolerated Generalized weakness Encourage mobilization (6) Protein calorie malnutrition: Encourage p.o. intake (7) PAT (acute kidney injury): Status post IV fluids Recheck BMP in AM Avoid Nephrotoxins (8) Type 2 diabetes mellitus with hyperglycemia, with long-term current use of insulin: Blood glucose checks q.i.d. a.c. and HS Continue with sliding scale insulin Adjust dose as needed 9. DVT prophylaxis: SCDs 10. Code status: Full 11. Disposition: Pending improvement Time Spent With Patient Time: 39 minutes Subjective Date/time seen: 02/22/25 12:38 Interval history: No acute events overnight Review of Systems Review of Systems: All systems reviewed & are unremarkable except as noted in HPI and below Exam Narrative: HEENT: EOMI, PERRL, sclerae nonicteric, pharyngeal mucosa pink and intact NECK: No JVD or adenopathy, small irregular goiter CHEST: Clear to auscultation, normal effort HEART: NL S1/S2, regular, 3/6 systolic ejection murmur right upper sternal border radiating to carotids, 2/6 apical systolic murmur radiating to axilla ABDOMEN: BS+, soft, nontender, nontender ventral hernia EXTREMITIES: Trace pretibial pitting edema NEUROLOGIC: CN intact and symmetric to inspection. MUSCULOSKELETAL: Tone and strength symmetric PSYCH: Alert, oriented to person, place, and time Objective Data Vital Signs Vital Signs: Vital Signs - 24 hr 02/21/25 12:59 02/21/25 13:10 02/21/25 14:00 Temperature 98.9 F Pulse Rate 85 Respiratory Rate 20 Blood Pressure 155/57 H Pulse Oximetry 98 Oxygen Delivery Room Air Room Air 02/21/25 20:00 02/21/25 22:26 02/22/25 06:34 Temperature 98.2 F 97.7 F Pulse Rate 82 82 Respiratory Rate 14 14 Blood Pressure 149/54 H 146/60 H Pulse Oximetry 98 98 Oxygen Delivery Room Air 02/22/25 08:00 Temperature Pulse Rate Respiratory Rate Blood Pressure Pulse Oximetry Oxygen Delivery Room Air Intake/Output Intake/Output: Intake & Output 02/19/25 02/20/25 02/21/25 02/22/25 23:59 23:59 23:59 23:59 Intake Total 50 4340 2920 350 Output Total 250 Balance -200 4340 2920 350 Meds/Results Medications: Active Medications Generic Name Dose Route Start Last Admin Trade Name Freq PRN Reason Stop Dose Admin Acetaminophen 650 mg 02/19/25 18:12 02/21/25 04:14 Acetaminophen 325 Mg Tablet PO 650 mg Q4H PRN Administration Mild Pain (1-3) or Fever Hydrocodone Bitart/Acetaminophen 1 tab 02/19/25 18:12 Hydrocodone/Acetaminophen (*Crx) 5-325 Mg Tablet PO Q4H PRN Pain Rated 4-6 Cyanocobalamin 1,000 mcg 02/21/25 09:00 02/22/25 08:56 Cyanocobalamin 1,000 Mcg Tablet PO 1,000 mcg QAM LIANNE Administration Dextrose 12.5 gm 02/19/25 23:47 Dextrose 50% 25 Gm/50 Ml Syringe IV PUSH PRN PRN Hypoglycemia Protocol Folic Acid 1 mg 02/21/25 09:00 02/22/25 08:56 Folic Acid 1 Mg Tablet PO 1 mg DAILY LIANNE Administration Glucagon 1 mg 02/19/25 23:47 Glucagon For Inj 1 Mg Vial IM PRN PRN Hypoglycemia Protocol Glucose 15 gm 02/19/25 23:47 Glucose Oral Gel 15 Gm Of Glucse In 37.5 Gm Tube PO PRN PRN Hypoglycemia Protocol Ceftriaxone Sodium 1 gm/ 50 mls @ 100 mls/hr 02/20/25 17:00 02/21/25 16:31 Sodium Chloride IVPB 100 mls/hr Q24H LIANNE Administration Dextrose 1,000 mls @ 100 mls/hr 02/19/25 23:47 Dextrose 5% 1,000 Ml IVPB PRN PRN Hypoglycemia Protocol Insulin Aspart 2 - 5 units 02/20/25 08:00 02/22/25 11:56 Insulin Aspart (*Bkc) 100 Units/Ml SUB-Q Not Given TIDWM LIANNE Protocol Morphine Sulfate 2 mg 02/19/25 18:12 Morphine Sulfate (*Crx) 2 Mg/Ml Inj IV PUSH Q2H PRN Pain Rated 7-10 Ondansetron HCl 4 mg 02/19/25 18:12 Ondansetron Inj 4 Mg/2 Ml Vial IV PUSH Q4H PRN Nausea Perflutren Lipid Microsphere 0 ml 02/20/25 11:27 Perflutren Lipid Microspheres 1.5 Ml Vial Diluted To 10 Ml Total Volume IV PUSH 02/23/25 11:27 ONCE PRN adequate visualization Protocol Radiology Results: ITS Impressions Head CT 02/19/25 17:57 IMPRESSION: 1. 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 The intra versus extra-axial location is indeterminate. Differential diagnosis includes meningioma, oligodendroglioma, calcified metastases. Recommend MRI brain with and without contrast. Labs Labs: Laboratory Results - last 24 hr 02/21/25 02/21/25 02/22/25 16:53 22:29 07:59 WBC RBC Hgb Hct MCV MCH MCHC RDW Plt Count MPV Immature Gran % (Auto) Neut % (Auto) Lymph % (Auto) [place] % (Auto) Eos % (Auto) Baso % (Auto) Lymph # (Auto) [place] # (Auto) Eos # (Auto) Baso # (Auto) Abs Immat Gran (auto) Absolute Neuts (auto) Absolute Nucleated RBC Nucleated RBC % Sodium Potassium Chloride Carbon Dioxide Anion Gap BUN Creatinine Estim Creat Clear Calc Estimated GFR Glucose POC Capillary Glucose 205 H 202 H 149 H Hemoglobin A1c Calcium Magnesium Total Bilirubin AST ALT Alkaline Phosphatase Total Creatine Kinase Total Protein Albumin 02/22/25 02/22/25 08:34 11:45 WBC 3.3 L RBC 3.09 L Hgb 9.0 L Hct 28.9 L MCV 93.5 MCH 29.1 MCHC 31.1 L RDW 15.0 H Plt Count 283 MPV 9.5 Immature Gran % (Auto) 0.6 H Neut % (Auto) 49.3 Lymph % (Auto) 31.1 [place] % (Auto) 12.9 H Eos % (Auto) 5.8 H Baso % (Auto) 0.3 Lymph # (Auto) 1.01 [place] # (Auto) 0.4 Eos # (Auto) 0.2 Baso # (Auto) 0.0 Abs Immat Gran (auto) 0.02 Absolute Neuts (auto) 1.6 Absolute Nucleated RBC 0.000 Nucleated RBC % 0.0 Sodium 141 Potassium 3.6 Chloride 113 H Carbon Dioxide 26 Anion Gap 2 L BUN 23 H D Creatinine 0.52 L Estim Creat Clear Calc Not Reportable Estimated GFR > 60 Glucose 160 H POC Capillary Glucose 157 H Hemoglobin A1c 5.4 Calcium 8.3 L Magnesium 1.7 Total Bilirubin 0.3 AST 40 H ALT 24 Alkaline Phosphatase 79 Total Creatine Kinase 72 Total Protein 5.4 L Albumin 2.6 L Quality VTE Prophylaxis VTE prophylaxis: mechanical ordered
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
[2025-02-22] MEDS: LACTATED RINGERS 1,000 ML 150 ML IV CONT (13:28)
[2025-02-22] MEDS: SIMETHICONE ORAL SUSPENSION 20 MG/0.3 ML 30 ML BOTTLE 1.8 ML PO (13:28)
--- NOTE | 2025-02-22 14:55 | S_PTH ---
PATIENT: Loretta Quintana LOC: [id number] U#:[id number] AGE/SX: 79/F ROOM: 331 RE02/21/[address]: Angelina Xie MD : 1945 BED: 02 DIS: 02/24/2025 SPEC #: [id number] RECD: 02/23/25 08:43 STATUS: CHRISTINE REBecky #: [id number] LILLIAN: 02/22/25 14:[address]: Rm Pierre DEPT: [facility] Surgical RECD BY: Seema Boland MLT, ([facility]) ENTERED: 02/23/25 08:44 SP TYPE: Surgical OTHR DR: MD Brandi Smith MD Sajjan K. Nemani, MD Sarah S. Travers, MD Tissues: A - Gastric Biopsy B - Gastric Biopsy Procedures: Hematoxylin and Eosin Stain Gross and Microscopic Level 4
--- NOTE | 2025-02-22 14:58 | WPDGIPROGNO ---
Progress Note: A&P Assessment and Plan (1) Iron deficiency anemia: Code(s): D50.9 - Iron deficiency anemia, unspecified Status: Acute Assessment and Plan: The patient was found to have mild erosive gastritis on EGD. This could be the reason for her iron deficiency, although colonoscopy was not technically feasible due to a large incisional hernia in the mid abdomen, According to prior reports. However, at this moment her large posterior fossa tumor takes priority regarding her general care. I suggest replacing iron intravenously while hospitalized, and then continue iron therapy, being followed by her primary care physician as an outpatient. Subjective Date/time seen: 02/22/25 14:58 Objective Data Vital Signs Vital Signs: Vital Signs - 24 hr 02/21/25 20:00 02/21/25 22:26 02/22/25 06:34 Temperature 98.2 F 97.7 F Pulse Rate 82 82 Respiratory Rate 14 14 Blood Pressure 149/54 H 146/60 H Pulse Oximetry 98 98 Oxygen Delivery Room Air 02/22/25 08:00 02/22/25 13:24 Temperature 98.8 F Pulse Rate 85 Respiratory Rate 18 Blood Pressure 182/60 H Pulse Oximetry 97 Oxygen Delivery Room Air Room Air Intake/Output Intake/Output: Intake & Output 02/19/25 02/20/25 02/21/25 02/22/25 23:59 23:59 23:59 23:59 Intake Total 50 4340 2920 350 Output Total 250 Balance -200 4340 2920 350 Meds/Results Medications: Active Medications Generic Name Dose Route Start Last Admin Trade Name Freq PRN Reason Stop Dose Admin Acetaminophen 650 mg 02/19/25 18:12 02/21/25 04:14 Acetaminophen 325 Mg Tablet PO 650 mg Q4H PRN Administration Mild Pain (1-3) or Fever Hydrocodone Bitart/Acetaminophen 1 tab 02/19/25 18:12 Hydrocodone/Acetaminophen (*Crx) 5-325 Mg Tablet PO Q4H PRN Pain Rated 4-6 Cyanocobalamin 1,000 mcg 02/21/25 09:00 02/22/25 08:56 Cyanocobalamin 1,000 Mcg Tablet PO 1,000 mcg QAM LIANNE Administration Dextrose 12.5 gm 02/19/25 23:47 Dextrose 50% 25 Gm/50 Ml Syringe IV PUSH PRN PRN Hypoglycemia Protocol Folic Acid 1 mg 02/21/25 09:00 02/22/25 08:56 Folic Acid 1 Mg Tablet PO 1 mg DAILY LIANNE Administration Glucagon 1 mg 02/19/25 23:47 Glucagon For Inj 1 Mg Vial IM PRN PRN Hypoglycemia Protocol Glucose 15 gm 02/19/25 23:47 Glucose Oral Gel 15 Gm Of Glucse In 37.5 Gm Tube PO PRN PRN Hypoglycemia Protocol Ceftriaxone Sodium 1 gm/ 50 mls @ 100 mls/hr 02/20/25 17:00 02/21/25 16:31 Sodium Chloride IVPB 100 mls/hr Q24H LIANNE Administration Dextrose 1,000 mls @ 100 mls/hr 02/19/25 23:47 Dextrose 5% 1,000 Ml IVPB PRN PRN Hypoglycemia Protocol Lactated Ringer's 1,000 mls @ 150 mls/hr 02/22/25 13:15 02/22/25 14:56 Lr - Lactated Ringers Iv IV CONT 150 mls/hr .Q6H40M [facility] Infusion Insulin Aspart 2 - 5 units 02/20/25 08:00 02/22/25 11:56 Insulin Aspart (*Bkc) 100 Units/Ml SUB-Q Not Given TIDWM [facility] Protocol Morphine Sulfate 2 mg 02/19/25 18:12 Morphine Sulfate (*Crx) 2 Mg/Ml Inj IV PUSH Q2H PRN Pain Rated 7-10 Ondansetron HCl 4 mg 02/19/25 18:12 Ondansetron Inj 4 Mg/2 Ml Vial IV PUSH Q4H PRN Nausea Perflutren Lipid Microsphere 0 ml 02/20/25 11:27 Perflutren Lipid Microspheres 1.5 Ml Vial Diluted To 10 Ml Total Volume IV PUSH 02/23/25 11:27 ONCE PRN adequate visualization Protocol Radiology Results: ITS Impressions Head CT 02/19/25 17:57 IMPRESSION: 1. 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 The intra versus extra-axial location is indeterminate. Differential diagnosis includes meningioma, oligodendroglioma, calcified metastases. Recommend MRI brain with and without contrast. Brain MRI 02/22/25 14:49 IMPRESSION: 1. 3.2 x 2.5 cm avidly enhancing extra-axial mass in the right posterior fossa calcific location on prior CT most consistent with a meningioma. Labs Labs: Laboratory Results - last 24 hr 02/21/25 02/21/25 02/22/25 16:53 22:29 07:59 WBC RBC Hgb Hct MCV MCH MCHC RDW Plt Count MPV Immature Gran % (Auto) Neut % (Auto) Lymph % (Auto) [place] % (Auto) Eos % (Auto) Baso % (Auto) Lymph # (Auto) [place] # (Auto) Eos # (Auto) Baso # (Auto) Abs Immat Gran (auto) Absolute Neuts (auto) Absolute Nucleated RBC Nucleated RBC % Sodium Potassium Chloride Carbon Dioxide Anion Gap BUN Creatinine Estim Creat Clear Calc Estimated GFR Glucose POC Capillary Glucose 205 H 202 H 149 H Hemoglobin A1c Calcium Magnesium Total Bilirubin AST ALT Alkaline Phosphatase Total Creatine Kinase Total Protein Albumin 02/22/25 02/22/25 02/22/25 08:34 11:45 13:13 WBC 3.3 L RBC 3.09 L Hgb 9.0 L Hct 28.9 L MCV 93.5 MCH 29.1 MCHC 31.1 L RDW 15.0 H Plt Count 283 MPV 9.5 Immature Gran % (Auto) 0.6 H Neut % (Auto) 49.3 Lymph % (Auto) 31.1 [place] % (Auto) 12.9 H Eos % (Auto) 5.8 H Baso % (Auto) 0.3 Lymph # (Auto) 1.01 [place] # (Auto) 0.4 Eos # (Auto) 0.2 Baso # (Auto) 0.0 Abs Immat Gran (auto) 0.02 Absolute Neuts (auto) 1.6 Absolute Nucleated RBC 0.000 Nucleated RBC % 0.0 Sodium 141 Potassium 3.6 Chloride 113 H Carbon Dioxide 26 Anion Gap 2 L BUN 23 H D Creatinine 0.52 L Estim Creat Clear Calc Not Reportable Estimated GFR > 60 Glucose 160 H POC Capillary Glucose 157 H 146 H Hemoglobin A1c 5.4 Calcium 8.3 L Magnesium 1.7 Total Bilirubin 0.3 AST 40 H ALT 24 Alkaline Phosphatase 79 Total Creatine Kinase 72 Total Protein 5.4 L Albumin 2.6 L
--- NOTE | 2025-02-22 15:36 | SUR.PHASEII ---
Dr. Rizvi notified about patient's elevated blood pressures post operatively, no orders received but instructed to pass onto floor RN so hospitalist can restart home blood pressure medication.
--- NOTE | 2025-02-22 15:38 | SUR.PHASEII ---
Rosey, floor RN taking care of patient, notified of patient's elevated blood pressures and anesthesiologist's request to reach out to hospitalist to restart home blood pressure medication.
[2025-02-22] MEDS: cefTRIAXone 1 GM in SODIUM CHLORIDE 0.9% IV 50 ML 100 ML IVPB (16:08)
[2025-02-23 03:54] VITALS: BP 153/53; PULSE 78; RESP 16; TEMP 36.5; O2SAT 97
[2025-02-23 06:48] LABS: Anion Gap 3 mmol/L (4-12); Blood Urea Nitrogen 17 mg/dL (7-17); Calcium 8.3 mg/dL (8.4-10.2); Carbon Dioxide 26 mmol/L (22-30); Chloride 110 mmol/L (98-107); Estimated Glomerular Filt Rate > 60; Glucose 144 mg/dL (65-110); Potassium 3.4 mmol/L (3.4-5.0); Sodium 139 mmol/L (137-145)
[2025-02-23] MEDS: CYANOCOBALAMIN 1,000 MCG TABLET 1000 MCG PO (09:29)
[2025-02-23] MEDS: FOLIC ACID 1 MG TABLET PO (09:29)
[2025-02-23] MEDS: POTASSIUM CHLORIDE 20 MEQ PACKET (FOR LIQUID) 40 MEQ PO (09:32)
[2025-02-23] MEDS: PANTOPRAZOLE 40 MG TABLET PO ×2 (09:33→21:34)
--- NOTE | 2025-02-23 11:44 | PM.IMPN ---
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: with usp use Qualified Code(s): E11.9 - Type 2 diabetes mellitus without complications; Z79.4 - vermin exterminator (current) use of insulin Code(s): E11.9 - Type 2 diabetes mellitus without complications Status: Acute (3) PAT (acute kidney injury): Code(s): N17.9 - Acute kidney failure, unspecified Status: Acute (4) Iron deficiency anemia: Code(s): D50.9 - Iron deficiency anemia, unspecified Status: Acute (5) Rhabdomyolysis: Qualifiers: Rhabdomyolysis type: non-traumatic Qualified Code(s): M62.82 - Rhabdomyolysis Code(s): M62.82 - Rhabdomyolysis Status: Acute (6) Fall: Qualifiers: Encounter type: initial encounter Qualified Code(s): W19.XXXA - Unspecified fall, initial encounter Code(s): W19.XXXA - Unspecified fall, initial encounter Status: Acute (7) Brain mass: Code(s): G93.89 - Other specified disorders of brain Status: Acute Plan 79-year-old female with a past medical history of subclinical hyperthyroidism, type 2 diabetes mellitus, essential hypertension and chronic anemia who presented to the ER via EMS from home after she was found down on the floor. 1) Rhabdomyolysis: Rhabdomyolysis has resolved 2) Urinary tract infection: Continue with ceftriaxone Await urine culture Urine culture growing Gram-negative bacilli (3) Iron deficiency anemia: IV iron on 02/20/2025 Appreciate GI help Status post EGD which shows erosive gastritis Erosive gastritis could be the cause for iron deficiency Colonoscopy was technically not feasible due to large incisional hernia and mid abdomen Continue with oral iron supplementation Tolerating diet Add PPI (4) Brain mass: Brain CT 02/19/2025: Peripherally calcified mass in the right posterior fossa measuring 3 x 2.4 cm with mass effect on the cerebellum. The intra versus extra-axial location is indeterminate. MRI brain shows 3.2 x 2.5 cm avidly enhancing extra-axial mass in the right posterior fossa calcific location on prior CT most consistent with a meningioma. Obtain Neurosurgery consult Neurology following (5) Fall: PT/OT as tolerated Encourage mobilization (6) Protein calorie malnutrition: Encourage p.o. intake (7) PAT (acute kidney injury): Status post IV fluids Resolved Recheck BMP in AM Avoid Nephrotoxins Supplement potassium (8) Type 2 diabetes mellitus with hyperglycemia, with long-term current use of insulin: Blood glucose checks q.i.d. a.c. and HS Continue with sliding scale insulin At 3 units of lispro with me Adjust dose as needed 9. History of hypertension: Resume home dose lisinopril 10. DVT prophylaxis: SCDs 11. Code status: Full 12. Disposition: Pending improvement Time Spent With Patient Time: 39 minutes Subjective Date/time seen: 02/23/25 11:44 Interval history: No acute events overnight Review of Systems Review of Systems: All systems reviewed & are unremarkable except as noted in HPI and below Exam Narrative: HEENT: EOMI, PERRL, sclerae nonicteric, NECK: No JVD or adenopathy, small irregular goiter CHEST: Clear to auscultation, normal effort HEART: NL S1/S2, regular, 3/6 systolic ejection murmur right upper sternal border radiating to carotids, 2/6 apical systolic murmur radiating to axilla ABDOMEN: BS+, soft, nontender, nontender ventral hernia EXTREMITIES: Trace pretibial pitting edema NEUROLOGIC: CN intact and symmetric to inspection. MUSCULOSKELETAL: Tone and strength symmetric PSYCH: Alert, oriented to person, place, and time Objective Data Vital Signs Vital Signs: Vital Signs - 24 hr 02/22/25 13:24 02/22/25 14:00 02/22/25 14:55 Temperature 98.8 F 98.6 F Pulse Rate 85 82 80 Respiratory Rate 18 18 27 H Blood Pressure 182/60 H 158/68 H 170/62 H Pulse Oximetry 97 98 98 Oxygen Delivery Room Air Room Air 02/22/25 15:05 02/22/25 15:15 02/22/25 20:00 Temperature Pulse Rate 83 76 Respiratory Rate 20 24 H Blood Pressure 189/74 H 187/74 H Pulse Oximetry 98 100 Oxygen Delivery Room Air Room Air Room Air 02/22/25 23:26 02/23/25 03:54 02/23/25 08:00 Temperature 97.8 F 97.7 F Pulse Rate 78 Respiratory Rate 16 16 Blood Pressure 146/49 H 153/53 H Pulse Oximetry 97 97 Oxygen Delivery Room Air Intake/Output Intake/Output: Intake & Output 02/20/25 02/21/25 02/22/25 02/23/25 23:59 23:59 23:59 23:59 Intake Total 4340 2970 2090 960 Balance 4340 2970 2090 960 Meds/Results Medications: Active Medications Generic Name Dose Route Start Last Admin Trade Name Freq PRN Reason Stop Dose Admin Acetaminophen 650 mg 02/19/25 18:12 02/21/25 04:14 Acetaminophen 325 Mg Tablet PO 650 mg Q4H PRN Administration Mild Pain (1-3) or Fever Hydrocodone Bitart/Acetaminophen 1 tab 02/19/25 18:12 Hydrocodone/Acetaminophen (*Crx) 5-325 Mg Tablet PO Q4H PRN Pain Rated 4-6 Cyanocobalamin 1,000 mcg 02/21/25 09:00 02/23/25 09:29 Cyanocobalamin 1,000 Mcg Tablet PO 1,000 mcg QAM LIANNE Administration Dextrose 12.5 gm 02/19/25 23:47 Dextrose 50% 25 Gm/50 Ml Syringe IV PUSH PRN PRN Hypoglycemia Protocol Folic Acid 1 mg 02/21/25 09:00 02/23/25 09:29 Folic Acid 1 Mg Tablet PO 1 mg DAILY LIANNE Administration Glucagon 1 mg 02/19/25 23:47 Glucagon For Inj 1 Mg Vial IM PRN PRN Hypoglycemia Protocol Glucose 15 gm 02/19/25 23:47 Glucose Oral Gel 15 Gm Of Glucse In 37.5 Gm Tube PO PRN PRN Hypoglycemia Protocol Ceftriaxone Sodium 1 gm/ 50 mls @ 100 mls/hr 02/20/25 17:00 02/22/25 16:08 Sodium Chloride IVPB 100 mls/hr Q24H LIANNE Administration Dextrose 1,000 mls @ 100 mls/hr 02/19/25 23:47 Dextrose 5% 1,000 Ml IVPB PRN PRN Hypoglycemia Protocol Insulin Aspart 2 - 5 units 02/20/25 08:00 02/23/25 09:27 Insulin Aspart (*Bkc) 100 Units/Ml SUB-Q Not Given TIDWM LIANNE Protocol Lisinopril 20 mg 02/22/25 16:02 02/22/25 16:24 Lisinopril 20 Mg Tablet PO 20 mg HS LIANNE Administration Morphine Sulfate 2 mg 02/19/25 18:12 Morphine Sulfate (*Crx) 2 Mg/Ml Inj IV PUSH Q2H PRN Pain Rated 7-10 Ondansetron HCl 4 mg 02/19/25 18:12 Ondansetron Inj 4 Mg/2 Ml Vial IV PUSH Q4H PRN Nausea Pantoprazole Sodium 40 mg 02/23/25 09:00 02/23/25 09:33 Pantoprazole 40 Mg Tablet PO 40 mg Q12HR LIANNE Administration Polysaccharide Iron Complex 150 mg 02/23/25 08:20 02/23/25 09:33 Polysaccharide Iron Complex 150 Mg Capsule PO 150 mg BIDWM LIANNE Administration Rosuvastatin Calcium 20 mg 02/23/25 21:00 Rosuvastatin 20 Mg Tablet PO HS [facility] Radiology Results: ITS Impressions Head CT 02/19/25 17:57 IMPRESSION: 1. 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 The intra versus extra-axial location is indeterminate. Differential diagnosis includes meningioma, oligodendroglioma, calcified metastases. Recommend MRI brain with and without contrast. Brain MRI 02/22/25 14:49 IMPRESSION: 1. 3.2 x 2.5 cm avidly enhancing extra-axial mass in the right posterior fossa calcific location on prior CT most consistent with a meningioma. Labs Labs: Laboratory Results - last 24 hr 02/22/25 02/22/25 02/22/25 11:45 13:13 17:33 Sodium Potassium Chloride Carbon Dioxide Anion Gap BUN Creatinine Estim Creat Clear Calc Estimated GFR Glucose POC Capillary Glucose 157 H 146 H 145 H Calcium 02/22/25 02/23/25 02/23/25 23:11 05:40 07:37 Sodium 139 Potassium 3.4 Chloride 110 H Carbon Dioxide 26 Anion Gap 3 L BUN 17 Creatinine 0.51 L Estim Creat Clear Calc Not Reportable Estimated GFR > 60 Glucose 144 H POC Capillary Glucose 162 H 147 H Calcium 8.3 L 02/23/25 11:26 Sodium Potassium Chloride Carbon Dioxide Anion Gap BUN Creatinine Estim Creat Clear Calc Estimated GFR Glucose POC Capillary Glucose 224 H Calcium Quality VTE Prophylaxis VTE prophylaxis: mechanical ordered
[2025-02-23] MEDS: INSULIN ASPART (*BKC) 100 UNITS/ML SUB-Q ×3 (11:59→17:25)
[2025-02-23 14:00] VITALS: BP 134/50; PULSE 85; RESP 16; TEMP 36.4; O2SAT 98
[2025-02-23] MEDS: cefTRIAXone 1 GM in SODIUM CHLORIDE 0.9% IV 50 ML 100 ML IVPB (17:23)
--- NOTE | 2025-02-23 17:48 | WPDNEUROSGPN ---
Progress Note: A&P Assessment and Plan (1) Meningioma: Code(s): D32.9 - Benign neoplasm of meninges, unspecified Status: Acute Plan I received a consult request for this patient earlier today. I reviewed her chart and her imaging which shows a partially calcified dural-based extra-axial mass in the right posterior fossa measuring about 2.5 x 3 cm, consistent with a meningioma. I will see the patient in person tomorrow for this, but this is most likely an incidental finding and has been present for many years. I do not anticipate that she will need any treatment for this now but will need outpatient radiographic monitoring. Subjective Date/time seen: 02/23/25 17:48 Objective Data Vital Signs Vital Signs: Vital Signs - 24 hr 02/22/25 20:00 02/22/25 23:26 02/23/25 03:54 Temperature 97.8 F 97.7 F Pulse Rate 78 Respiratory Rate 16 16 Blood Pressure 146/49 H 153/53 H Pulse Oximetry 97 97 Oxygen Delivery Room Air 02/23/25 08:00 02/23/25 14:00 Temperature 97.6 F Pulse Rate 85 Respiratory Rate 16 Blood Pressure 134/50 L Pulse Oximetry 98 Oxygen Delivery Room Air Intake/Output Intake/Output: Intake & Output 02/20/25 02/21/25 02/22/25 02/23/25 23:59 23:59 23:59 23:59 Intake Total 4340 2970 2140 1820 Balance 4340 2970 2140 1820 Meds/Results Medications: Active Medications Generic Name Dose Route Start Last Admin Trade Name Freq PRN Reason Stop Dose Admin Acetaminophen 650 mg 02/19/25 18:12 02/21/25 04:14 Acetaminophen 325 Mg Tablet PO 650 mg Q4H PRN Administration Mild Pain (1-3) or Fever Hydrocodone Bitart/Acetaminophen 1 tab 02/19/25 18:12 Hydrocodone/Acetaminophen (*Crx) 5-325 Mg Tablet PO Q4H PRN Pain Rated 4-6 Cyanocobalamin 1,000 mcg 02/21/25 09:00 02/23/25 09:29 Cyanocobalamin 1,000 Mcg Tablet PO 1,000 mcg QAM LIANNE Administration Dextrose 12.5 gm 02/19/25 23:47 Dextrose 50% 25 Gm/50 Ml Syringe IV PUSH PRN PRN Hypoglycemia Protocol Folic Acid 1 mg 02/21/25 09:00 02/23/25 09:29 Folic Acid 1 Mg Tablet PO 1 mg DAILY LIANNE Administration Glucagon 1 mg 02/19/25 23:47 Glucagon For Inj 1 Mg Vial IM PRN PRN Hypoglycemia Protocol Glucose 15 gm 02/19/25 23:47 Glucose Oral Gel 15 Gm Of Glucse In 37.5 Gm Tube PO PRN PRN Hypoglycemia Protocol Ceftriaxone Sodium 1 gm/ 50 mls @ 100 mls/hr 02/20/25 17:00 02/23/25 17:23 Sodium Chloride IVPB 100 mls/hr Q24H LIANNE Administration Dextrose 1,000 mls @ 100 mls/hr 02/19/25 23:47 Dextrose 5% 1,000 Ml IVPB PRN PRN Hypoglycemia Protocol Insulin Aspart 2 - 5 units 02/20/25 08:00 02/23/25 17:25 Insulin Aspart (*Bkc) 100 Units/Ml SUB-Q Not Given TIDWM REPLACED BY [facility] Protocol Insulin Aspart 3 units 02/23/25 12:00 02/23/25 17:25 Insulin Aspart (*Bkc) 100 Units/Ml SUB-Q 3 units TIDWM LIANNE Administration Lisinopril 20 mg 02/22/25 16:02 02/22/25 16:24 Lisinopril 20 Mg Tablet PO 20 mg HS LIANNE Administration Morphine Sulfate 2 mg 02/19/25 18:12 Morphine Sulfate (*Crx) 2 Mg/Ml Inj IV PUSH Q2H PRN Pain Rated 7-10 Ondansetron HCl 4 mg 02/19/25 18:12 Ondansetron Inj 4 Mg/2 Ml Vial IV PUSH Q4H PRN Nausea Pantoprazole Sodium 40 mg 02/23/25 09:00 02/23/25 09:33 Pantoprazole 40 Mg Tablet PO 40 mg Q12HR LIANNE Administration Polysaccharide Iron Complex 150 mg 02/23/25 08:20 02/23/25 17:25 Polysaccharide Iron Complex 150 Mg Capsule PO 150 mg BIDWM LIANNE Administration Rosuvastatin Calcium 20 mg 02/23/25 21:00 Rosuvastatin 20 Mg Tablet PO HS REPLACED BY [facility] Radiology Results: ITS Impressions Head CT 02/19/25 17:57 IMPRESSION: 1. 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 The intra versus extra-axial location is indeterminate. Differential diagnosis includes meningioma, oligodendroglioma, calcified metastases. Recommend MRI brain with and without contrast. Brain MRI 02/22/25 14:49 IMPRESSION: 1. 3.2 x 2.5 cm avidly enhancing extra-axial mass in the right posterior fossa calcific location on prior CT most consistent with a meningioma. Labs Labs: Laboratory Results - last 24 hr 02/22/25 02/23/25 02/23/25 23:11 05:40 07:37 Sodium 139 Potassium 3.4 Chloride 110 H Carbon Dioxide 26 Anion Gap 3 L BUN 17 Creatinine 0.51 L Estim Creat Clear Calc Not Reportable Estimated GFR > 60 Glucose 144 H POC Capillary Glucose 162 H 147 H Calcium 8.3 L 02/23/25 02/23/25 11:26 16:13 Sodium Potassium Chloride Carbon Dioxide Anion Gap BUN Creatinine Estim Creat Clear Calc Estimated GFR Glucose POC Capillary Glucose 224 H 143 H Calcium
[2025-02-23 20:00] VITALS: PULSE 78; RESP 16; O2SAT 97
[2025-02-23] MEDS: ROSUVASTATIN 20 MG TABLET PO (21:34)
[2025-02-23 21:35] VITALS: BP 148/50; PULSE 78; RESP 16; TEMP 36.4; O2SAT 97
[2025-02-24 06:20] LABS: Hematocrit 28.3 % (37.0-47.0); Hemoglobin 8.6 g/dL (12.0-15.0); Immature Granulocyte Percent A 0.4 % (0-0.5); Lymphocytes Absolute Auto 1.19 K/mm3 (0.9-3.2); Mean Corpuscular HGB Conc 30.4 g/dl (32-36); Mean Corpuscular Hemoglobin 28.6 pg (26-34); Mean Corpuscular Volume 94.0 fl (80-100); Nucleated Red Blood Cells Absolute Auto 0.000 K/mm3 (0.0-0.012); Nucleated Red Blood Cells Perc 0.0 % (0.0-0.2); Platelet Count Result 255 k/mm3 (150-375); Red Blood Count 3.01 M/mm3 (4.2-5.4); White Blood Count 4.7 K/mm3 (4.5-10.0)
[2025-02-24 06:35] LABS: Anion Gap 3 mmol/L (4-12); Blood Urea Nitrogen 17 mg/dL (7-17); Calcium 8.4 mg/dL (8.4-10.2); Carbon Dioxide 27 mmol/L (22-30); Chloride 109 mmol/L (98-107); Estimated Glomerular Filt Rate > 60; Glucose 195 mg/dL (65-110); Magnesium 1.4 mg/dL (1.6-2.3); Potassium 3.8 mmol/L (3.4-5.0); Sodium 139 mmol/L (137-145)
[2025-02-24 06:37] VITALS: BP 155/57; PULSE 78; RESP 16; TEMP 36.5; O2SAT 98
[2025-02-24] MEDS: FOLIC ACID 1 MG TABLET PO (08:17)
[2025-02-24] MEDS: CYANOCOBALAMIN 1,000 MCG TABLET 1000 MCG PO (08:17)
[2025-02-24] MEDS: PANTOPRAZOLE 40 MG TABLET PO (08:17)
[2025-02-24] MEDS: INSULIN ASPART (*BKC) 100 UNITS/ML SUB-Q ×2 (08:18→12:45)
[2025-02-24] MEDS: ACETAMINOPHEN 325 MG TABLET 650 MG PO (08:23)
[2025-02-24] MEDS: MAGNESIUM SULF 2 GM/WATER 50ML 2 GM/50 ML BAG IVPB (10:02)
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
--- NOTE | 2025-02-24 12:11 | P.DS_ITS ---
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 Code(s): E11.9 - Type 2 diabetes mellitus without complications Status: Acute (2) PAT (acute kidney injury): Code(s): N17.9 - Acute kidney failure, unspecified Status: Acute (3) Acute UTI: Code(s): N39.0 - Urinary tract infection, site not specified Status: Acute (4) Iron deficiency anemia, unspecified: Qualifiers: Iron deficiency anemia type: unspecified iron deficiency Qualified Code(s): D50.9 - Iron deficiency anemia, unspecified Code(s): D50.9 - Iron deficiency anemia, unspecified Status: Acute (5) Meningioma: Code(s): D32.9 - Benign neoplasm of meninges, unspecified Status: Acute (6) Rhabdomyolysis: Qualifiers: Rhabdomyolysis type: non-traumatic Qualified Code(s): M62.82 - Rhabdomyolysis Code(s): M62.82 - Rhabdomyolysis Status: Acute (7) Fall: Qualifiers: Encounter type: initial encounter Qualified Code(s): W19.XXXA - Unspecified fall, initial encounter Code(s): W19.XXXA - Unspecified fall, initial encounter Status: Acute (8) Generalized weakness: Code(s): R53.1 - Weakness Status: Acute DS: Summary Hospital Course Reason for hospitalization: Fall Hospital Course: 79-year-old female with a past medical history of subclinical hyperthyroidism, type 2 diabetes mellitus, essential hypertension and chronic anemia who presented to the ER via EMS from home after she was found down on the floor. Was found to have rhabdomyolysis, treated with IV fluids which has resolved. She had PAT as well which has resolved with IV fluids. Found to have a Klebsiella UTI, treated with ceftriaxone while in the hospital, discharged on cefdinir to complete a total 7 day course. Was found to have iron deficiency anemia, GI was consulted, status post EGD which showed erosive gastritis, started on PPI, started on iron supplementation. CT of brain showed peripherally calcified mass in the right posterior fossa measuring 3 x 2.4 cm with mass effect on the cerebellum, MRI brain shows 2.2 x 2.5 cm avidly extra axial mass in right posterior fossa calcific location, consistent with meningioma. Neurosurgery was consulted. Advised for outpatient follow-up in 3 months. Patient is back to baseline. Patient is being discharged home in stable condition. Status at Discharge Functional status at discharge: independent ambulation Overall status at discharge: patient is back to baseline Time Spent with Patient Time attestation: Total time spent providing and/or coordinating discharge services: Exam Narrative: HEENT: EOMI, PERRL, sclerae nonicteric, NECK: No JVD or adenopathy, small irregular goiter CHEST: Clear to auscultation, normal effort HEART: NL S1/S2, regular, 3/6 systolic ejection murmur right upper sternal border radiating to carotids, 2/6 apical systolic murmur radiating to axilla ABDOMEN: BS+, soft, nontender, nontender ventral hernia EXTREMITIES: Trace pretibial pitting edema NEUROLOGIC: CN intact and symmetric to inspection. MUSCULOSKELETAL: Tone and strength symmetric PSYCH: Alert, oriented to person, place, and time DS: Data Data Completed and Pending Completed studies during hospitalization: Pending at discharge 02/22/25 14:55 Surgical [PTH] Routine Labs on day of discharge: Labs from last 24 hours 02/24/25 02/24/25 02/24/25 11:37 07:42 05:59 WBC 4.7 RBC 3.01 L Hgb 8.6 L Hct 28.3 L MCV 94.0 MCH 28.6 MCHC 30.4 L RDW 14.5 Plt Count 255 MPV 9.3 Immature Gran % (Auto) 0.4 Neut % (Auto) 55.1 Lymph % (Auto) 25.1 Pettis % (Auto) 12.7 H Eos % (Auto) 6.3 H Baso % (Auto) 0.4 Lymph # (Auto) 1.19 Pettis # (Auto) 0.6 Eos # (Auto) 0.3 Baso # (Auto) 0.0 Abs Immat Gran (auto) 0.02 Absolute Neuts (auto) 2.6 Absolute Nucleated RBC 0.000 Nucleated RBC % 0.0 Sodium 139 Potassium 3.8 Chloride 109 H Carbon Dioxide 27 Anion Gap 3 L BUN 17 Creatinine 0.59 L Estim Creat Clear Calc Not Reportable Estimated GFR > 60 Glucose 195 H POC Capillary Glucose 167 H 183 H Calcium 8.4 Magnesium 1.4 L 02/23/25 02/23/25 20:07 16:13 WBC RBC Hgb Hct MCV MCH MCHC RDW Plt Count MPV Immature Gran % (Auto) Neut % (Auto) Lymph % (Auto) Pettis % (Auto) Eos % (Auto) Baso % (Auto) Lymph # (Auto) Pettis # (Auto) Eos # (Auto) Baso # (Auto) Abs Immat Gran (auto) Absolute Neuts (auto) Absolute Nucleated RBC Nucleated RBC % Sodium Potassium Chloride Carbon Dioxide Anion Gap BUN Creatinine Estim Creat Clear Calc Estimated GFR Glucose POC Capillary Glucose 168 H 143 H Calcium Magnesium Discharge Plan Discharge Attending physician on discharge: Angelina Xie Consulting providers: Olivia Ordoñez; Antonia Hopper Discharging Clinician: Angelina Xie Anticipated Discharge Date/Time: 02/24/25 12:07 Patient Disposition: Home Activity: as tolerated Diet: diabetic Patient Instructions: Antibiotic Form Patient Language: [place]alander Stand Alone Forms: General Discharge Information Follow-up/Referrals: Zac Stuart MD [Primary Care Provider, Family Practice] - 2 Weeks Olivia Ordoñez MD [Physician, Neurology] - 4 Weeks Antonia Hopper MD [Physician, Neurosurgery] - 6 Weeks Discharge Medications: New pantoprazole 40 mg Tablet,Delayed Release (Dr/Ec) 40 mg PO Q12HR Qty: 30 1RF cyanocobalamin (vitamin B-12) [Vitamin B-12] 1,000 mcg Tablet 1,000 mcg PO QAM Qty: 30 0RF folic acid 1 mg Tablet 1 mg PO DAILY Qty: 30 0RF polysaccharide iron complex 150 mg iron Capsule 150 mg PO BIDWM Qty: 60 0RF cefdinir 300 mg capsule 300 mg PO Q12H Qty: 6 0RF Continued calcium citrate-vitamin D3 315-200 mg-unit tablet 2 tablet PO DAILY aspirin [Adult Low Dose Aspirin] 81 mg Tablet,Delayed Release (Dr/Ec) 81 mg PO DAILY lisinopril 20 mg tablet 20 mg PO HS Rx Instructions: Take 1 tablet by mouth once daily metformin 500 mg tablet extended release 24 hr 2,000 mg PO HS rosuvastatin 20 mg tablet 20 mg PO HS fenofibric acid (choline) 135 mg capsule,delayed release(DR/EC) 135 mg PO HS (DME) insulin syringe-needle U-100 [BD Insulin Syringe Ultra-Fine] 0.3 mL 31 gauge x 5/16 syringe See Rx Instructions .ROUTE .MEDSUPPLY Qty: 180 3RF Rx Instructions: inject bid (DME) pen needle, diabetic 32 gauge x 5/32 needle See Rx Instructions .Route Qty: 100 10RF Rx Instructions: As directed to inject insulin BID OneTouch Ultra Test Strip See Rx Instructions .ROUTE .COMPLEX Qty: 100 5RF Dose Instruction: USE STRIP TO CHECK GLUCOSE TWICE DAILY Rx Instructions: USE STRIP TO CHECK GLUCOSE TWICE DAILY insulin lispro protamin-lispro [Humalog Mix 75-25 KwikPen] 100 unit/mL (75-25) insulin pen 15 unit subcut BID Qty: 15 2RF Date of admission: 02/21/25 13:27 Primary Care Provider: Zac Stuart Admitting Provider: Brandi Sutton Attending physician on admission: Brandi Sutton Condition: Improved
== END 2025-02-24 14:30 | disposition home or self-care (01) | DRG 557 ==
LOC: ANHED 18:20 → ANH3MEDSUR 18:51
PROVIDERS: Emergency Medicine; Internal Medicine; Internal Medicine Gastroenterology; Admitting Provider General Practice; Emergency Provider Emergency Medicine; PCP Family Medicine; Visit Provider Internal Medicine
PROC: 0DJ08ZZ Inspection of Upper Intestinal Tract, Via Natural or Artificial Opening Endoscopic (ICD-10-PCS; principal; 2025-02-22 12:30)
DX: M62.82 Rhabdomyolysis (principal); K29.51 Unspecified chronic gastritis with bleeding; N17.9 Acute kidney failure, unspecified; N39.0 Urinary tract infection, site not specified; E46 Unspecified protein-calorie malnutrition; K43.0 Incisional hernia with obstruction, without gangrene; W06.XXXA Fall from bed, initial encounter; B96.1 Klebsiella pneumoniae [K. pneumoniae] as the cause of diseases classified elsewhere; E86.0 Dehydration; D32.9 Benign neoplasm of meninges, unspecified; E11.9 Type 2 diabetes mellitus without complications; D50.9 Iron deficiency anemia, unspecified; E05.80 Other thyrotoxicosis without thyrotoxic crisis or storm; I10 Essential (primary) hypertension; M81.0 Age-related osteoporosis without current pathological fracture; K57.90 Diverticulosis of intestine, part unspecified, without perforation or abscess without bleeding; I35.0 Nonrheumatic aortic (valve) stenosis; H35.3190 Nonexudative age-related macular degeneration, unspecified eye, stage unspecified; M19.90 Unspecified osteoarthritis, unspecified site; E78.5 Hyperlipidemia, unspecified; Z79.4 Long term (current) use of insulin; Z90.49 Acquired absence of other specified parts of digestive tract; Z87.891 Personal history of nicotine dependence
CPT/HCPCS: 36415; 70450; 70553; 80048; 80053; 81001; 82274; 82550; 82607; 82746; 82948; 83036; 83540; 83550; 83605; 83735; 84100; 84439; 84443; 84480; 84484; 85025; 85027; 85046; 85610; 85730; 86140; 87086; 87186; 88305; 93005; 93306; 96365; 96375; 97161; 97165; 97530; 97535; 99285; A9270; A9577; G0378; J0696; J1756; J1815; J2003; J2704; J3475; J7030; J7050; J7120

== ENCOUNTER 2025-03-10 14:29 | Outpatient (CLI) | payer MEDICARE, SELFPAY ==
[2025-03-10 15:22] LABS: Hematocrit 33.8 % (37.0-47.0); Hemoglobin 10.3 g/dL (12.0-15.0); Mean Corpuscular HGB Conc 30.5 g/dl (32-36); Mean Corpuscular Hemoglobin 28.9 pg (26-34); Mean Corpuscular Volume 94.9 fl (80-100); Platelet Count Result 302 k/mm3 (150-375); Red Blood Count 3.56 M/mm3 (4.2-5.4); White Blood Count 4.4 K/mm3 (4.5-10.0)
[2025-03-10 15:24] LABS: Add Urine Microscopic? YES; Appearance Urine Clear (Clear); Glucose Urine UA Negative (Negative); Leukocyte Esterase Ur Trace LEU/UL (Negative); Nitrate Urine Negative (Negative); Specific Grav Ur 1.022 (1.001-1.035)
== END 2025-03-10 14:30 | disposition home or self-care (01) ==
LOC: ANHLAB 14:30
PROVIDERS: PCP Family Medicine; Visit Provider Physician Assistant Medical
DX: R30.0 Dysuria (principal); D50.9 Iron deficiency anemia, unspecified; N17.9 Acute kidney failure, unspecified
CPT/HCPCS: 36415; 81001; 85027; 87077; 87086; 87186

== ENCOUNTER 2025-03-11 08:36 | Outpatient (CLI) | payer MEDICARE, SELFPAY ==
[2025-03-11 09:07] LABS: Alanine Aminotransferase 20 U/L (6-35); Albumin Level 3.3 g/dL (3.5-5.1); Alkaline Phosphatase 89 U/L (38-126); Anion Gap 5 mmol/L (4-12); Aspartate Amino Transferase 46 U/L (14-36); Bilirubin,Total 0.6 mg/dL (0.2-1.3); Blood Urea Nitrogen 17 mg/dL (7-17); Calcium 9.3 mg/dL (8.4-10.2); Carbon Dioxide 26 mmol/L (22-30); Chloride 109 mmol/L (98-107); Estimated Glomerular Filt Rate > 60; Glucose 78 mg/dL (65-110); Potassium 3.8 mmol/L (3.4-5.0); Sodium 140 mmol/L (137-145); Total Protein 6.2 g/dL (6.3-8.2)
== END 2025-03-11 08:37 | disposition home or self-care (01) ==
LOC: ANHLAB 08:40
PROVIDERS: PCP Family Medicine; Visit Provider Physician Assistant Medical
DX: R30.0 Dysuria (principal); D50.9 Iron deficiency anemia, unspecified; N17.9 Acute kidney failure, unspecified
CPT/HCPCS: 36415; 80053